=== PATIENT | female | born 1930 | race Caucasian/White ===

== ENCOUNTER 2016-11-13 11:57 | Observation (INO) | payer OTHER, BC ==
[2016-11-13] MEDS ORDERED: FAMOTIDINE 20 MG TAB PO ONE (12:00)
[2016-11-13] MEDS ORDERED: diphenhydrAMINE 25 MG CAP PO ONE ×2 (12:00→12:43)
[2016-11-13] MEDS ORDERED: ASPIRIN EC 325 MG TAB PO ONE ×2 (12:00→12:43)
[2016-11-13] MEDS ORDERED: DIAZEPAM 5 MG TAB PO ONE (12:00)
[2016-11-13] MEDS ORDERED: NS 1,000 ML IV ONE ×2 (12:00→20:20)
[2016-11-13] MEDS ORDERED: IOPAMIDOL (ISOVUE-370) 150 ML BTL IV ONE (12:25)
[2016-11-13] MEDS ORDERED: MIDAZOLAM 2 MG/2 ML VIAL ONE ×2 (12:25→13:43)
[2016-11-13] MEDS ORDERED: fentaNYL 100 MCG/2 ML INJ ONE ×2 (12:25→14:05)
[2016-11-13] MEDS ORDERED: LIDOCAINE 1% 30 ML SDV ONE (12:25)
--- NOTE | 2016-11-13 12:25 | CPEKG ---
Heart Rate: 78 RR Interval: 769 P-R Interval: 200 QRSD Interval: 94 QT Interval: 368 QTC Interval: 420 P Belen: 49 QRS Belen: 34 T Wave Belen: 11 EKG Severity - BORDERLINE ECG - EKG Impression: SINUS RHYTHM EKG Impression: LEFT ATRIAL ENLARGEMENT Electronically Signed By: Yoandy Astudillo 13-Nov-2016 14:34:15
[2016-11-13] MEDS ORDERED: FAMOTIDINE 20 MG TAB ONE (12:43)
[2016-11-13] MEDS ORDERED: DIAZEPAM 5 MG TAB ONE (12:44)
[2016-11-13 12:46] LABS: % IMMATURE GRANULYOCYTES 0.3 % (0.0-1.1); ABSOLUTE IMMATURE GRANULOCYTES 0.03 10^3/uL (0.00-0.10); ADD DIFF? NO; ADD MORPH? NO; ADD SCAN? NO; ATYPICAL LYMPHOCYTE FLAG 0 (0-99); FRAGMENT RBC FLAG 0 (0-99); HEMATOCRIT 41.5 % (38.0-47.0); HEMOGLOBIN 14.1 g/dL (12.6-16.3); LEFT SHIFT FLG 0 (0-99); LIPEMIA HEMOLYSIS FLAG 90 (0-99); MEAN CELL VOLUME 91.2 fL (81.5-99.8); MEAN PLATELET VOLUME 9.9 fL (8.7-11.7); PLATELET CLUMPS FLAG 40 (0-99); PLATELET COUNT 191 10^3/uL (150-400); RED BLOOD CELL COUNT 4.55 10^6/uL (4.18-5.33); RED CELL DISTRIBUTION WIDTH 14.4 % (11.5-15.2)
[2016-11-13 12:55] LABS: INR 1.03 (0.83-1.16); PROTIME(PATIENT) 13.4 SEC (12.0-15.0)
[2016-11-13 13:02] LABS: ANION GAP 10 mEq/L (8-16); CALCIUM 9.6 mg/dL (8.5-10.4); CARBON DIOXIDE 25 mEq/l (22-31); CHLORIDE 98 mEq/L (97-110); CHOLESTEROL 145 mg/dL (140-220); CHOLESTEROL/HDL RATIO 2.69 RATIO (1.00-4.44); CREATININE 0.5 mg/dL (0.6-1.0); GLOMERULAR FILTRATION RATE > 60; GLUCOSE 82 mg/dL (70-100); HIGH DENSITY LIPOPROTEIN 54 mg/dL (40-85); LDL/HDL RATIO 1.44 RATIO (1.00-3.22); LOW DENSITY LIPOPROTEIN 78 mg/dL (80-100); MAGNESIUM 1.7 mg/dL (1.6-2.3); NON-HIGH DENSITY LIPOPROTEIN 91 mg/dL (90-129); POTASSIUM 5.2 mEq/L (3.5-5.2); SODIUM 133 mEq/L (134-144); SPECIMEN HEMOLYSIS 146; TRIGLYCERIDE 66 mg/dL (35-135); VERY LOW DENSITY LIPOPROTEINS 13 mg/dL (8-25)
[2016-11-13] MEDS ORDERED: IOPAMIDOL (ISOVUE-300) 150 ML BTL IV ONE (13:38)
[2016-11-13] MEDS ORDERED: HEPARIN 10,000 UNIT/10 ML MDV ONE (13:42)
[2016-11-13] MEDS ORDERED: BIVALIRUDIN 250 MG/5 ML VIAL IV ONE (13:42)
[2016-11-13] MEDS ORDERED: NITROGLYCERIN 1,500 MCG/15 ML VIAL MISC ONE (13:55)
[2016-11-13] MEDS ORDERED: ONDANSETRON 4 MG/2 ML VIAL IVP PRN (14:12)
[2016-11-13] MEDS ORDERED: ONDANSETRON DISINTEGRATING 4 MG TAB PO PRN (14:12)
[2016-11-13] MEDS ORDERED: LORazepam 2 MG/ML INJ IVP PRN (14:12)
[2016-11-13] MEDS ORDERED: ACETAMINOPHEN 325 MG TAB PO PRN (14:12)
--- NOTE | 2016-11-13 14:18 | CPIP ---
[f rep st] INVASIVE CARDIAC PROCEDURE DIAGNOSIS: Unstable angina. INDICATIONS: The patient is having unstable angina and gotten to the point where she is having rest angina. She gets jaw discomfort as her angina. She has had no stress test at this time. She does not have heart failure. PROCEDURE: Left and right coronary arteriogram. COMPLICATIONS: None. CONDITION: At the end of the study, excellent. FINDINGS: 1. Angiography left main coronary artery is normal. 2. Left anterior descending artery has mild 10% disease in multiple places. 3. Circumflex coronary artery has 20% smooth ostial stenosis. OM1 also has a smooth 10% stenosis a t the ostium. 4. Right coronary artery has a proximal 90% stenosis. It is very hazy and a mid 95% stenosis. 5. The right coronary is dominant. There are faint left to right collaterals. RECOMMENDATION: For PCI consultation. /[id number]/MODL
[2016-11-13] MEDS ORDERED: fentaNYL 100 MCG/2 ML INJ IVP PRN (15:52)
[2016-11-13] MEDS ORDERED: LORazepam 1 MG TAB PO PRN (16:33)
[2016-11-13] MEDS ORDERED: NITROGLYCERIN 0.4 MG BTL SL PRN (16:33)
--- NOTE | 2016-11-13 17:08 | PDCTREPORT ---
Cardiothoracic Procedure Rpt Cardiothoracic Procedure Report: By my partner Dr. Partha Maher to perform angioplasty in the setting of significant InStent restenosis in a previously irradiated right coronary artery. I have reviewed the old diagnostic angiograms and therapeutic angiograms. Patient was anticoagulated with heparin. The right coronary artery is heavily calcified heavily stented with focal in stent restenosis distally and diffuse irregularities in the proximal segment on a bend. The ostium is heavily calcified. Guiding support was quite difficult. For details of all the guide catheters used please see the attached computer report. Ultimately a 7 Grenadian AL1 catheter was used to intubate the right coronary artery. The catheter was coaxial providing superb support. Using a 0.014 Kinetix wire attempts at crossing the RCA stenosis were made. The wire would cross proximally easily but would not go beyond the distal stenosis. Attempts at balloon support using a 3 mm and then a 1.25 mm balloon were made but due to the proximal calcification and rigidity the balloon would not pass easily beyond the proximal segment. Ultimately with a grade 2 course the will balloon did move more distally. It would not move further than the right coronary artery bend. After multiple attempts the right coronary lesion could not be crossed nor could we advanced a balloon down to the lesion. Patient was having significant groin pain during the procedure. It was elected to stop at this time rather than close the vessel with a proximal or distal dissection. Patient will be offered coronary artery bypass grafting single vessel versus an 8 Grenadian system and a 2nd attempt at opening this occlusion. Final diagnosis Unsuccessful PCI of the right coronary artery in the setting of recurrent InStent restenosis in a severely calcific /irradiated/heavily stented vessel. Questions were answered with the patient and her daughter. Patient Problems: Problems Problem Status Onset Chest pain Acute Chronic Disease [facility]/Transitonal Care Acute
[2016-11-13] MEDS ORDERED: ATROPINE SULFATE 1 MG/10 ML SYR ONE (18:40)
[2016-11-13] MEDS ORDERED: TEMAZEPAM 15 MG CAP PO PRN (20:20)
[2016-11-13] MEDS ORDERED: ATORVASTATIN CALCIUM 40 MG TAB PO SCH (21:00)
[2016-11-13] MEDS: METOPROLOL TARTRATE 50 MG TAB PO SCH (21:21)
[2016-11-13 22:58] VITALS: RESP 16
[2016-11-14 05:18] LABS: % IMMATURE GRANULYOCYTES 0.3 % (0.0-1.1); ABSOLUTE IMMATURE GRANULOCYTES 0.02 10^3/uL (0.00-0.10); ADD DIFF? NO; ADD MORPH? NO; ADD SCAN? NO; ATYPICAL LYMPHOCYTE FLAG 0 (0-99); FRAGMENT RBC FLAG 0 (0-99); HEMATOCRIT 34.5 % (38.0-47.0); HEMOGLOBIN 11.8 g/dL (12.6-16.3); LEFT SHIFT FLG 0 (0-99); LIPEMIA HEMOLYSIS FLAG 90 (0-99); MEAN CELL HEMOGLOBIN 31.5 pg (27.9-34.1); MEAN CELL HEMOGLOBIN CONCENTR. 34.2 g/dL (32.4-36.7); MEAN PLATELET VOLUME 10.2 fL (8.7-11.7); PLATELET CLUMPS FLAG 0 (0-99); PLATELET COUNT 166 10^3/uL (150-400); RED BLOOD CELL COUNT 3.75 10^6/uL (4.18-5.33); RED CELL DISTRIBUTION WIDTH 14.5 % (11.5-15.2)
[2016-11-14 05:30] LABS: CALCIUM 8.6 mg/dL (8.5-10.4); CARBON DIOXIDE 27 mEq/l (22-31); CHLORIDE 97 mEq/L (97-110); CREATININE 0.5 mg/dL (0.6-1.0); GLOMERULAR FILTRATION RATE > 60; GLUCOSE 85 mg/dL (70-100); SODIUM 129 mEq/L (134-144)
[2016-11-14] MEDS ORDERED: LEVOTHYROXINE 100 MCG TAB PO SCH (06:00)
[2016-11-14 06:09] LABS: ANION GAP 5 mEq/L (8-16); POTASSIUM 3.9 mEq/L (3.5-5.2)
[2016-11-14] MEDS: METOPROLOL TARTRATE 50 MG TAB PO SCH (08:39)
[2016-11-14] MEDS: CLOPIDOGREL BISULFATE 75 MG TAB PO SCH ×2 (08:40→08:43)
[2016-11-14] MEDS ORDERED: LOSARTAN POTASSIUM 50 MG TAB PO SCH (09:00)
[2016-11-14] MEDS ORDERED: NON-FORMULARY NEW DRUG (Lansoprazole [Prevacid] 15 MG) PO SCH (09:00)
[2016-11-14] MEDS ORDERED: Herbals/Supplements -Info Only PO SCH (09:00)
[2016-11-14] MEDS ORDERED: PRESERVISION AREDS2 FORMULA EYE VIT 1 EACH PO SCH (09:00)
[2016-11-14] MEDS ORDERED: LISINOPRIL 40 MG TAB PO SCH (09:00)
[2016-11-14] MEDS ORDERED: PANTOPRAZOLE SODIUM 40 MG TAB PO SCH (09:00)
[2016-11-14] MEDS ORDERED: INDAPAMIDE 2.5 MG TAB PO SCH (09:00)
[2016-11-14 12:02] VITALS: BP 95/60; PULSE 71; TEMP 98; O2SAT 93
--- NOTE | 2016-11-14 15:21 | GDS ---
[f rep st] DISCHARGE SUMMARY Jaw discomfort. DIAGNOSES: 1. Unstable angina. 2. Coronary artery disease. 3. Dyslipidemia. HISTORY AND HOSPITAL COURSE: The patient was admitted to the hospital because of increasing angina. She also has a history of hypertension and hyperlipidemia. She had a left and right coronary arteriogram done on 11/13, and she had mild 10% disease in the lef t anterior descending artery that was smooth. In her circumflex coronary artery there was a 20% smo oth ostial stenosis. OM-1 has a smooth 10% stenosis at the ostium. The right coronary artery is dominant, and has a 90% proximal stenosis. It was very hazy, and there was a mid 95% stenosis. The right common coronary is dominant. There very faint [id number] col laterals. She had no complications from the procedure. She then went on to have percutaneous intervention, and there was an unsuccessful PCI of the right c oronary artery in the setting of recurrent in-stent restenosis in a severely calcified, irradiated, heavily stented vessel. The patient tolerated that well. There was a dissection in the femoral art hannah by the end of the case. The patient had tolerated that very well. This morning she is up and a bout, walking well, having no trouble with the site of the catheterization. Catheterization was done with an ultrasound probe guiding the needle stick. Her films have been reviewed with the surgical service, and the recommendation is for her to meet [facility] on Thursday for possible surgery next week, with a single-vessel bypass. I have gone over the options with her and explained this to her, and she understands and is willing to proceed. I have also talked to her daughter and answered all her questions. DISCHARGE MEDICATIONS: The same as prior to admission. Synthroid 100 mcg, metoprolol tartrate 100 mg twice a day, lisinopril 40 mg daily, Atorvastatin 40 mg at bedtime, Plavix 75 mg p.o., Ativan p.r .n. She had been taking that in the past. She does use herbal supplements. She is on amlodipine 1 0 mg at bedtime. She uses nitroglycerin p.r.n. She is also taking aspirin 81 mg daily. All her questions have been answered. She is eager to get home. She does not want to stay in the ospital for observation and remain here until surgery would commence. 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 Obviously, her condition is guarded on the basis of having severe critical right coronary artery dis ease that is not amenable to percutaneous intervention, whatsoever, and which requires further surgi rené intervention in the future. However, in the meantime, she is ischemic in that region and she is going to be very careful with what she does, and use nitroglycerin ahead of time if she knows that she is doing as much as the last time she took nitroglycerin when she walked 2 blocks to [employer] and back. I have answered all the questions. We have reviewed prevention. /[id number]/MODL
== END 2016-11-14 15:09 | disposition home or self-care (01) ==
LOC: FCATH 11:57 → F2W 14:12
PROVIDERS: ADMIT Internal Medicine; ATTEND Internal Medicine
DX: I25.110 Atherosclerotic heart disease of native coronary artery with unstable angina pectoris (principal); E78.2 Mixed hyperlipidemia; I10 Essential (primary) hypertension; R68.84 Jaw pain; Z79.01 Long term (current) use of anticoagulants; Z85.3 Personal history of malignant neoplasm of breast; Z87.891 Personal history of nicotine dependence
CPT/HCPCS: 93005; 93454; C1725; C1769; C1887; J0461; J1200; J1644; J2250; J3010; Q9967; J0583

== ENCOUNTER 2016-11-16 19:14 | Inpatient (IN) | payer OTHER, BC ==
--- NOTE | 2016-11-16 19:30 | CPEKG ---
Heart Rate: 85 RR Interval: 706 P-R Interval: 188 QRSD Interval: 98 QT Interval: 376 QTC Interval: 447 P Bowman: 40 QRS Bowman: 24 T Wave Bowman: -21 EKG Severity - BORDERLINE ECG - EKG Impression: SINUS RHYTHM EKG Impression: PROBABLE LEFT ATRIAL ABNORMALITY EKG Impression: BORDERLINE T ABNORMALITIES, INFERIOR LEADS Electronically Signed By: Hernán Shrestha 16-Nov-2016 21:43:20
--- NOTE | 2016-11-16 19:39 | EDPHY ---
H & P Stated Complaint: nauseated and lightheaded; recent stent placement unsuccessful Time Seen by Provider: 11/16/16 19:38 - Personal History Current Tetanus/Diphtheria Vaccine: Yes - Medical/Surgical History Hx Asthma: No Hx Chronic Respiratory Disease: No Hx Diabetes: No Hx Cardiac Disease: Yes Hx Renal Disease: No Hx Cirrhosis: No Hx Alcoholism: No Hx HIV/AIDS: No Hx Splenectomy or Spleen Trauma: No Other PMH: PMH- cad, htn, hld, hypothyroid, breast CA, osteopenia, cataracts, macular degeneration, L. wrist fracture. PSH- 6 stents, right radical mastectomy - Social History Smoking Status: Former smoker Constitutional: Initial Vital Signs Temperature (C) 36.4 C 11/16/16 19:21 Heart Rate 94 11/16/16 19:21 Respiratory Rate 19 11/16/16 19:21 Blood Pressure 116/54 L 11/16/16 19:21 O2 Sat (%) 88 L 11/16/16 19:21 O2 Delivery Mode Room Air Allergies/Adverse Reactions: Sulfa (Sulfonamide Antibiotics) Allergy (Unknown, Verified 09/17/15 09:13) Unknown Home Medications: Medication Instructions Recorded Atorvastatin Calcium [Lipitor 40 40 mg PO HS 03/13/14 mg (*)] C/E/Zn/Cu/OM3/DHA/EPA/LUT/ZEAX 2 each PO DAILY #0 03/13/14 [Preservision Areds 2 Softgel] Clopidogrel Bisulfate [Plavix (*)] 75 mg PO DAILY 03/13/14 Herbals/Supplements -Info Only 1 tab PO DAILY 03/13/14 LORazepam [Ativan (*)] 0.5 mg PO HS PRN 03/13/14 Levothyroxine [Synthroid 100 mcg 100 mcg PO DAILY06 03/13/14 (*)] Lisinopril [Zestril 40 mg (*)] 40 mg PO DAILY 03/13/14 Metoprolol Tartrate [Lopressor 50 100 mg PO BID 03/13/14 mg (*)] amLODIPine BESYLATE [Norvasc 10 mg 10 mg PO HS 09/17/15 (*)] Indapamide [Indapamide 2.5 mg (*)] 2.5 mg PO DAILY 11/13/16 Lansoprazole [Prevacid] 15 mg PO DAILY 11/13/16 Losartan Potassium [Cozaar 50 mg 50 mg PO DAILY 11/13/16 (*)] Nitroglycerin [Nitrostat 0.4 mg 0.4 mg SL Q5M PRN 11/13/16 (*)] Medical Decision Making ED Course/Re-evaluation: CHIEF COMPLAINT: Near syncope. HISTORY OF PRESENT ILLNESS: The patient is an 86-year-old female with a history of CAD and 6 cardiac stents who presents after a near syncopal episode. She reports that this morning when she would exert herself she would get severe jaw pains. In the evening she experienced an episode of vomiting, chills, and had to lie on the floor to not pass out. She admits associated headache which was the symptom she had prior to a previous stenting. On she was going to have her 7th stent placed but the procedure was unable to be finished due to arterial tearing and a bypass surgery is planned. She denies recent sickness, fever, diarrhea, or other complaints. REVIEW OF SYSTEMS: A 10 point review of systems was performed and is negative with the exception of the elements mentioned in the history of present illness. PHYSICAL EXAM: HR, BP, O2 Sat, RR. Temp noted General Appearance: Alert, well hydrated, appropriate, and non-toxic appearing. Head: Atraumatic without scalp tenderness or obvious injury Eyes: Pupils equal, round, reactive to light and accommodation, EOMI, no trauma , no injection. Ears: Clear bilaterally, no perforation, normal landmarks Nose: Atraumatic, no rhinorrhea, clear. Throat: There is no erythema or exudates, no lesions, normal tonsils, mucus membranes moist. Neck: Supple, 2+ carotid upstroke, nontender, no lymphadenopathy. Respiratory: No retractions, no distress, no wheezes, and no accessory muscle use. Inspiratory rales. Cardiovascular: Regular rate and rhythm, no murmurs, rubs, or gallops. Bilateral carotid, radial, dorsalis pedis, and posterior tibial pulses intact. Good capillary refill all extremities. Gastrointestinal: Abdomen is soft, nontender, non-distended, no masses, no rebound, no guarding, no peritoneal signs. Musculoskeletal: Normal active ROM of all extremities, atraumatic. Bilateral lower extremity venous stasis changes. Neurological: Alert, appropriate, and interactive. The patient has normal DTRs and non-focal cranial nerves, motor, sensory, and cerebellar exam. Skin: No rashes, good turgor, no nodules on palpation. Past medical history: CAD, hypertension, hyperlipidemia, hypothyroidism, breast CA, osteopenia, cataracts, macular degeneration. Past surgical history: Mastectomy. Social history: Here with son. DIAGNOSTICS/PROCEDURES/CRITICAL CARE TIME: The 12 lead EKG was interpreted by myself. See hard copy and/or "tracemaster" electronic copy for interpretation. Sinus rhythm. Probable left atrial abnormality. T-wave changes in V4. DIFFERENTIAL DIAGNOSIS: The differential diagnosis for the patient's near-syncope included but was not limited to vasovagal syncope, arrhythmia, dehydration, cardiogenic causes, neurogenic causes, and blood loss. MEDICAL DECISION MAKIN-year-old female with an extensive cardiac history presents after a near syncopal episode earlier today. She also describes having exertional jaw pain this morning while walking. On exam I hear inspiratory rales. She was supposed to be stented 3 days ago but this was not completed due to arterial tearing so she is scheduled for bypass. An IV was established and labs ordered. Chest x-ray , EKG obtained. Troponin elevated at .116. I am unsure if this is from an acute event today or her failed stenting 3 days ago. BNP elevated at 556. 2004: Consulted with Dr. Scherer, hospitalist. He accepts admission. 2014: Consulted with Dr. Astudillo, cardiology. He recommends 1mg/kg Lovenox and nitro paste. - Data Points Laboratory Results: Laboratory Results 11/16/16 19:25 11/16/16 19:25 11/16/16 11/16/16 11/16/16 19:25 19:25 19:25 WBC 8.94 10^3/uL 10^3/uL (3.80-9.50) RBC 3.78 10^6/uL L 10^6/uL (4.18-5.33) Hgb 11.8 g/dL L g/dL (12.6-16.3) Hct 34.8 % L % (38.0-47.0) MCV 92.1 fL fL (81.5-99.8) MCH 31.2 pg pg (27.9-34.1) MCHC 33.9 g/dL g/dL (32.4-36.7) RDW 14.3 % % (11.5-15.2) Plt Count 205 10^3/uL 10^3/uL (150-400) MPV 10.1 fL fL (8.7-11.7) Neut % (Auto) 65.8 % % (39.3-74.2) Lymph % (Auto) 24.8 % % (15.0-45.0) Dare % (Auto) 6.2 % % (4.5-13.0) Eos % (Auto) 2.5 % % (0.6-7.6) Baso % (Auto) 0.4 % % (0.3-1.7) Nucleat RBC Rel Count 0.0 % % (0.0-0.2) Absolute Neuts (auto) 5.88 10^3/uL 10^3/uL (1.70-6.50) Absolute Lymphs (auto) 2.22 10^3/uL 10^3/uL (1.00-3.00) Absolute Monos (auto) 0.55 10^3/uL 10^3/uL (0.30-0.80) Absolute Eos (auto) 0.22 10^3/uL 10^3/uL (0.03-0.40) Absolute Basos (auto) 0.04 10^3/uL 10^3/uL (0.02-0.10) Absolute Nucleated RBC 0.00 10^3/uL 10^3/uL (0-0.01) Immature Gran % 0.3 % % (0.0-1.1) Immature Gran # 0.03 10^3/uL 10^3/uL (0.00-0.10) PT 13.4 SEC SEC (12.0-15.0) INR 1.03 (0.83-1.16) APTT 24.4 SEC SEC (23.0-38.0) Sodium 131 mEq/L L mEq/L (134-144) Potassium 3.7 mEq/L mEq/L (3.5-5.2) Chloride 93 mEq/L L mEq/L (97-110) Carbon Dioxide 26 mEq/l mEq/l (22-31) Anion Gap 12 mEq/L mEq/L (8-16) BUN 15 mg/dL mg/dL (7-23) Creatinine 0.7 mg/dL mg/dL (0.6-1.0) Estimated GFR > 60 Glucose 110 mg/dL H mg/dL (70-100) Calcium 9.5 mg/dL mg/dL (8.5-10.4) Troponin I 0.116 ng/mL H ng/mL (0-0.034) NT-Pro-B Natriuret Pep 556 pg/mL H pg/mL (0-450) Departure - Departure Disposition: [facility] Inpatient Acute Clinical Impression: Acute coronary syndrome Coronary artery disease Qualifiers: Coronary Disease-Associated Artery/Lesion type: unspecified vessel or lesion type [place] vs. transplanted heart: [place] heart Associated angina: with unspecified angina Qualified Code(s): I25.119 - Atherosclerotic heart disease of [place] coronary artery with unspecified angina pectoris Condition: Fair Referrals: Patient,NotPresent [Unknown] - As per Instructions Report Scribed for: Hernán Shrestha Report Scribed by: Fili Jane Date of Report: 11/16/16 Time of Report: 20:01
[2016-11-16 19:45] LABS: % IMMATURE GRANULYOCYTES 0.3 % (0.0-1.1); ABSOLUTE IMMATURE GRANULOCYTES 0.03 10^3/uL (0.00-0.10); ADD DIFF? NO; ADD MORPH? NO; ADD SCAN? NO; ATYPICAL LYMPHOCYTE FLAG 0 (0-99); FRAGMENT RBC FLAG 0 (0-99); HEMATOCRIT 34.8 % (38.0-47.0); HEMOGLOBIN 11.8 g/dL (12.6-16.3); LEFT SHIFT FLG 0 (0-99); LIPEMIA HEMOLYSIS FLAG 90 (0-99); MEAN CELL HEMOGLOBIN 31.2 pg (27.9-34.1); MEAN CELL HEMOGLOBIN CONCENTR. 33.9 g/dL (32.4-36.7); MEAN CELL VOLUME 92.1 fL (81.5-99.8); MEAN PLATELET VOLUME 10.1 fL (8.7-11.7); PLATELET CLUMPS FLAG 10 (0-99); PLATELET COUNT 205 10^3/uL (150-400); RED BLOOD CELL COUNT 3.78 10^6/uL (4.18-5.33); RED CELL DISTRIBUTION WIDTH 14.3 % (11.5-15.2)
[2016-11-16 19:50] LABS: ANION GAP 12 mEq/L (8-16); CALCIUM 9.5 mg/dL (8.5-10.4); CARBON DIOXIDE 26 mEq/l (22-31); CHLORIDE 93 mEq/L (97-110); CREATININE 0.7 mg/dL (0.6-1.0); GLOMERULAR FILTRATION RATE > 60; GLUCOSE 110 mg/dL (70-100); POTASSIUM 3.7 mEq/L (3.5-5.2); SODIUM 131 mEq/L (134-144)
[2016-11-16 19:56] LABS: APTT 24.4 SEC (23.0-38.0); INR 1.03 (0.83-1.16); PROTIME(PATIENT) 13.4 SEC (12.0-15.0)
[2016-11-16 20:03] LABS: TROPONIN I 0.116 ng/mL (0-0.034)
[2016-11-16] MEDS ORDERED: ENOXAPARIN 60 MG/0.6 ML SYR SC ONE (20:17)
[2016-11-16] MEDS ORDERED: NITROGLYCERIN 2% 1 GM PACKET TP ONE (20:17)
[2016-11-16] MEDS ORDERED: ONDANSETRON 4 MG/2 ML VIAL IVP PRN (20:41)
[2016-11-16] MEDS ORDERED: PANTOPRAZOLE SODIUM 40 MG TAB PO PRN (21:28)
[2016-11-16 21:33] LABS: COLOR YELLOW; LEUKOCYTE ESTERASE,URINE 3+ (NEGATIVE); NITRITE,URINE NEGATIVE (NEGATIVE)
--- NOTE | 2016-11-16 21:36 | GHP ---
[f rep st] HISTORY AND PHYSICAL DATE OF ADMISSION: 11/16/2016 CHIEF COMPLAINT: Jaw pain, nausea. HISTORY OF PRESENT ILLNESS: This is an 86-year-old female with a history of coronary artery disease . She has had 6 stents in the past and the last several has been in the right coronary artery. She had anginal symptoms recently and was admitted electively just a few days ago and stent placement w as attempted, but it was unsuccessful due to significant calcification. She had an appointment with Dr. Emmanuel tomorrow to consider one-vessel bypass. However, this morning, she had an episode of vom iting and then, progressive jaw pain. It was worse with exertion. She also felt lightheaded and swe aty. She has been taking nitroglycerin a lot over the last several days and it has helped some. Pravin solano has had chills, but no fevers. No cough. She has mild peripheral edema. She does feel short of breath with exertion. REVIEW OF SYSTEMS: A 10-point review of systems was obtained and was negative. PAST MEDICAL HISTORY: 1. Coronary artery disease, as above. 2. 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 3. Wet macular degeneration. 4. Osteopenia. 5. Hypothyroidism. MEDICATIONS: Reviewed. SOCIAL HISTORY: No smoking. Is quite active and goes to many exercise classes a day. She recently came back from and was able to tour without any problems. FAMILY HISTORY: Both parents are . PHYSICAL EXAMINATION: VITAL SIGNS: Afebrile, blood pressure 141/75, heart rate is 86, oxygen satur ation is 88% on room air. GENERAL: The patient is in no apparent distress. HEENT: Nonicteric scl erae. Extraocular movements intact. Moist mucous membranes. No exudate. NECK: Supple. No thyro megaly. LUNGS: Good effort. Clear to auscultation bilaterally. CARDIOVASCULAR: Regular rate and rhythm. No murmurs, rubs, or gallops. ABDOMEN: Positive bowel sounds. Soft, nontender, nondisten ded. No hepatosplenomegaly. EXTREMITIES: No clubbing, cyanosis, trace edema. SKIN: Without rash, dry, intact. NEUROLOGIC: Alert and oriented x3. Moving all 4 extremities equally. PSYCH: Normal mood and affect. LABORATORY DATA: White count 8, hemoglobin 11, platelets are 205. Sodium 131, potassium 3.7. Trop onin is slightly elevated at 0.116. BNP 556. EKG personally reviewed and interpreted shows normal sinus rhythm. T-wave flattening inferiorly. ASSESSMENT: This is an 86-year-old female with a history of significant stenosis of right coronary artery that was unable to be stented, presenting with unstable angina. PLAN: 1. Unstable angina. The patient will be started on Lovenox and a nitroglycerin patch. Cardiology has been consulted. We will probably need to let Cardiovascular Surgery know the patient is in the hospital so they can see her and possibly do bypass surgery here in the hospital. 2. Mild hyponatremia. 3. Hypertension. Continue medications. ADMISSION: Patient will be admitted under full admission status. Case discussed with ER physician and old records reviewed and summarized in HPI. /[id number]/MODL
[2016-11-16 21:45] LABS: BACTERIA TRACE /hpf (NONE SEEN); MUCUS TRACE /lpf (NONE-1+); WBC,URINE 15-25 /hpf (0-3)
[2016-11-16] MEDS: ACETAMINOPHEN 325 MG TAB PO PRN (23:11)
[2016-11-16] MEDS: NITROGLYCERIN 2% 1 GM PACKET TP SCH (23:11)
[2016-11-16] MEDS: LORazepam 0.5 MG TAB PO PRN (23:11)
[2016-11-17 04:28] LABS: % IMMATURE GRANULYOCYTES 0.1 % (0.0-1.1); ABSOLUTE IMMATURE GRANULOCYTES 0.01 10^3/uL (0.00-0.10); ADD DIFF? NO; ADD MORPH? NO; ADD SCAN? NO; ATYPICAL LYMPHOCYTE FLAG 0 (0-99); FRAGMENT RBC FLAG 0 (0-99); HEMATOCRIT 32.1 % (38.0-47.0); HEMOGLOBIN 11.1 g/dL (12.6-16.3); LEFT SHIFT FLG 0 (0-99); LIPEMIA HEMOLYSIS FLAG 90 (0-99); MEAN CELL HEMOGLOBIN 31.2 pg (27.9-34.1); MEAN CELL HEMOGLOBIN CONCENTR. 34.6 g/dL (32.4-36.7); MEAN CELL VOLUME 90.2 fL (81.5-99.8); PLATELET CLUMPS FLAG 10 (0-99); PLATELET COUNT 190 10^3/uL (150-400); RED BLOOD CELL COUNT 3.56 10^6/uL (4.18-5.33); RED CELL DISTRIBUTION WIDTH 14.1 % (11.5-15.2)
[2016-11-17 05:00] LABS: ANION GAP 6 mEq/L (8-16); CARBON DIOXIDE 26 mEq/l (22-31); CHLORIDE 95 mEq/L (97-110); CREATININE 0.6 mg/dL (0.6-1.0); GLUCOSE 92 mg/dL (70-100); POTASSIUM 3.6 mEq/L (3.5-5.2); SODIUM 127 mEq/L (134-144)
[2016-11-17 05:01] LABS: ALANINE AMINOTRANSFERASE 34 IU/L (9-52); ALBUMIN 3.6 g/dL (3.5-5.0); ALKALINE PHOSPHATASE 76 IU/L (38-126); ASPARTATE AMINOTRANSFERASE 27 IU/L (14-46); BILIRUBIN,TOTAL 0.5 mg/dL (0.1-1.4); CALCIUM 9.1 mg/dL (8.5-10.4); GLOMERULAR FILTRATION RATE > 60; TOTAL PROTEIN 6.2 g/dL (6.3-8.2)
[2016-11-17 05:11] LABS: TROPONIN I 0.119 ng/mL (0-0.034)
[2016-11-17] MEDS: LEVOTHYROXINE 100 MCG TAB PO SCH (06:06)
[2016-11-17] MEDS: NITROGLYCERIN 2% 1 GM PACKET TP SCH ×4 (06:06→23:03)
[2016-11-17] MEDS: LOSARTAN POTASSIUM 50 MG TAB PO SCH (08:13)
[2016-11-17] MEDS: METOPROLOL TARTRATE 100 MG TAB PO SCH ×2 (08:13→20:34)
[2016-11-17] MEDS: ACETAMINOPHEN 325 MG TAB PO PRN ×3 (08:14→23:09)
[2016-11-17] MEDS: LISINOPRIL 40 MG TAB PO SCH (08:14)
[2016-11-17] MEDS ORDERED: INDAPAMIDE 2.5 MG TAB PO SCH (09:00)
[2016-11-17] MEDS ORDERED: HEPARIN/DEXTROSE 500 ML IV SCH (09:00)
[2016-11-17 11:06] LABS: HEMOGLOBIN A1C 5.9 % (4.0-6.0)
--- NOTE | 2016-11-17 11:13 | ECHO ---
[id number] + + [address] : : [place] [address] : : [phone] + + Adult Echocardiographic Report + ----+ :Name: ANITRA MCCLAIN JStudy Date: 11/17/2016 09:18 AM BP: 90/68 mm Hg : : Hospital Admission Number: [id number] : :: 1930 Gender: Female Height: 63 i n : :Age: 86 yrs Race: WH,White Weight: 163 lb : :Reason For Study: Eval LV Fx and Valves : : BSA: 1.8 met ers2: :History: Pre Op CABG : + ----+ MMode/2D Measurements \T\ Calculations IVSd: 0.86 cm LVIDd: 4.0 cm FS: 37.1 % Ao root diam: 2.5 cm LVPWd: 0.95 cm LVIDs: 2.5 cm EDV(Teich): 69.3 ml ACS: 0.80 cm ESV(Teich): 22.5 ml LA dimension: 3.8 cm EF(Teich): 67.6 % LVOT diam: 1.9 cm LVOT area: 2.8 cm2 Normal Measurement Values: + + :LVIDd (3.5-5.7cm) IVSd (0.6-1.1cm) LVPWd (0.6-1.1cm) Aortic Root (2.0-3.7cm)Left Atrium (1.5-4.0cm): :LV Vol(d) (76-115ml) LV Vol(s) (29-48ml) Ejec Fraction (50-65%)PV Toñito (0.6- 1.2m/s) TV Toñito (0.4-1.0m/s) : :MV E Toñito (0.8-1.0m/s)MV A Toñito (0.3-1.0m/s)LVOT Toñito (0.7-1.2m/s) Asc Ao Toñito ( 0.9-1.8m/s) : + + Doppler Measurements \T\ Calculations MV E max toñito: MV V2 mean: Ao V2 max: LV V1 max: 65.2 cm/sec 62.9 cm/sec 243.7 cm/sec 77.5 cm/sec MV A max toñito: MV mean PG: Ao max P.8 mmHgLV V1 max P.8 cm/sec 1.8 mmHg Ao mean P.4 mmHg MV E/A: 0.73 MV V2 VTI: 18.5 mmHg LV V1 mean P.7 cm Ao V2 mean: 1.2 mmHg 206.7 cm/sec LV V1 mean: MVA(VTI): 2.4 cm2 Ao V2 VTI: 60.4 cm 48.2 cm/sec LV V1 VTI: 18.2 cm KRISTI(I,D): 0.85 cm2 KRISTI(V,D): 0.90 cm2 SV(LVOT): 51.5 ml PA V2 max: PI end-d toñito: TR max toñito: 92.3 cm/sec 172.4 cm/sec 264.7 cm/sec PA max PG: TR max P.4 mmHg 28.0 mmHg RAP systole: 5.0 mmHg RVSP(TR): 33.0 mmHg Left Ventricle The left ventricle is normal in size. There is mild concentric left ventricular hypertrophy. The left ventricular ejection fraction is normal. There is Doppler evidence for diastolic dysfunction. The left ventricle is hyperdynamic. Ejection Fraction = 70%. The left ventricular ejection fraction is calculated at 67.6 %. There is mild basilar to mid inferolateral hypokinesis. Right Ventricle The right ventricle is normal in size and function. Atria The left atrial size is normal. Right atrial size is normal. Mitral Valve There is mild mitral annular calcification. The mitral valve leaflets appear thickened, but open well. There is no mitral valve stenosis. There is trace to mild mitral regurgitation. Tricuspid Valve There is trace to mild tricuspid regurgitation. Right ventricular systolic pressure is normal. Aortic Valve There is mild to moderate aortic valve calcification. The aortic valve is trileaflet. The Ao V2 max is 2.4 m/sec with an Ao mean PG of 18 mmHg. There is no aortic insufficiency. Pulmonic Valve The pulmonic valve is not well visualized. Mild pulmonic valvular regurgitation. Great Vessels The aortic root is normal size. Pericardium/Pleural There is no pericardial effusion. Conclusion A complete two-dimensional transthoracic echocardiogram was performed (2D, M-mode, Doppler and color flow Doppler). (1) Left ventricular systolic ejection fraction was normal (>70%) - there was mild inferolateral hypokinesis noted (2) Mild left ventricular hypertrophy (3) Diastolic dysfunction was present (4) Grossly normal right ventricular size and function (5) Grossly normal atrial dimensions (6) Mild mitral annular calcification with thickened valves (no stenosis). There was trace/mild mitral regurgitation (7) Trileaflet aortic valve with moderate sclerosis with mild to moderate stenosis. - mean gradient was 18 mm Hg - KRISTI was estimated to be 0.9 cm\S\2 (8) Mild tricuspid regurgitation - RVSP was normal (9) Poor visualization of the pulmonic valve with mild insufficiency (10) In comparison to echocardiogram from 03-14-14, there has been some progression to the aortic valve pathology. Final Reading Physician: Asael Chavez signed on 11/17/2016 11:11 AM Ordering Physician: Elana Campa Performed By: Tom Ibrahim, ISMACS
--- NOTE | 2016-11-17 11:57 | GCON ---
[f rep st] CONSULTATION DATE OF CONSULTATION: 11/17/2016 REFERRING PHYSICIAN: Mia Astudillo MD ADMISSION IMPRESSION: 1. Unstable angina pectoris with severe disease of the right coronary artery status post 4 previous stents. 2. History of breast cancer with cobalt radiation to the chest. 3. Macular degeneration. 4. Hypothyroidism. RECOMMENDATIONS: I discussed at length the patient's options including continued medical therapy wi th likely ultimate myocardial infarction which I believe would be rather small and would control her symptoms at that time. The other option is consider surgical intervention, a single bypass graft t o the right is potentially doable. I do have some reservations about the quality of her distal vess el and the first two-thirds of the vessel entirely covered in stents leaving minimal options. The b ranch vessels from the main right coronary artery are too small for grafting and, therefore, we will have to concentrate on the main vessel in the AV groove. I did advise them that there is some chance that we would be unable to bypass that vessel because of its quality, but we would continue to proceed if they wished and agreed. Complications, length of stay and potential rehab placement were all discussed at length. CHIEF COMPLAINT: A very pleasant 86-year-old female who has had multiple interventions on the right coronary artery with a recent unsuccessful PCI with readmission for unstable angina. She had minim al enzyme elevation on readmission. REVIEW OF SYSTEMS: Unremarkable. MEDICAL HISTORY: As stated. MEDICATIONS: She was on Plavix which was discontinued on admission. SOCIAL HISTORY: She never smoked. She does like to drink a glass of wine per night. She exercises on a daily basis. FAMILY HISTORY: Noncontributory. PHYSICAL EXAMINATION: GENERAL: An elderly female who is quite alert, oriented, and very attentive. She does express in extreme will to survive and has multiple family members who are supportive air and are very involved in her daily life including international travel. VITAL SIGNS: Blood pressu re is 140/70, pulse 84, respirations 88 on room air. HEENT: PERRLA. EOMI. NECK: Without bruit, adenopathy or thyromegaly. HEART: Rate is regular without murmur, S3 or S4. LUNGS: Clear. ABDOM EN: Soft, nontender. Bowel sounds are active. RECTAL AND GENITAL: Deferred. EXTREMITIES: Pedal pulses are 1+. She has no edema. No varicosities. DIAGNOSTICS: Catheterization films were reviewed. /[id number]/MODL
[2016-11-17] MEDS: SENNOSIDES/DOCUSATE SODIUM TAB PO SCH ×2 (14:35→20:32)
[2016-11-17] MEDS: MUPIROCIN 2% 22 GM OINT NS SCH ×2 (14:48→20:37)
--- NOTE | 2016-11-17 15:36 | HOSPPROG ---
Hospitalist Progress Note Assessment/Plan: * CAD - RCA stenosis with multiple failed stent attempts -ongoing angina with borderline troponin elevation -to CABG with Dr. Emmanuel in am -holding plavix * HTN - multidrug requirement * Breast ca s/p cobolt tx * RUE chronic lymphedema s/p mastectomy * Wet macular degeneration * Hyponatremia -stop indapamide Going to CT surgery tomorrow. Hospitalist medicine to sign off. Please reconsult if our services are needed. Thanks!! Subjective: No more jaw pain. Headache from the nitro Objective: Vital Signs Temp Pulse Resp BP Pulse Ox 35.9 C L 70 18 99/65 L 91 L 11/17/16 11:51 11/17/16 11:51 11/17/16 11:51 11/17/16 11:51 11/17/16 11:51 Laboratory Results 11/17/16 03:38 11/17/16 03:38 11/16/16 11/17/16 11/18/16 05:59 05:59 05:59 Intake Total 300 400 Output Total 600 Balance -300 400 PT 13.4 SEC (12.0-15.0) 11/16/16 19:25 INR 1.03 (0.83-1.16) 11/16/16 19:25 EKG viewed, my personal interpretation is - inferior TW changes c/w RCA lesion carotid US - negative - Physical Exam Constitutional: no apparent distress, appears nourished, not in pain Cardiovascular: regular rate and rhythym, no murmur, rub, or gallop Respiratory: no respiratory distress, no rales or rhonchi, clear to auscultation Gastrointestinal: normoactive bowel sounds, soft, non-tender abdomen, no palpable masses Skin: no rashes or abrasions, no fluctuance, no induration Neurologic: AAOx3, sensation intact bilaterally Psychiatric: interacting appropriately, not anxious, not encephalopathic, thought process linear ICD10 Worksheet Patient Problems: Problems Problem Status Onset Acute coronary syndrome Acute Coronary artery disease Acute Chest pain Acute Chronic Disease [facility]/Transitonal Care Acute
[2016-11-17] MEDS: ATORVASTATIN CALCIUM 40 MG TAB PO SCH (20:34)
[2016-11-17] MEDS ORDERED: CHLORHEXIDINE GLUC HIBICLENS 118 ML BTL TP SCH (21:00)
[2016-11-17] MEDS: LORazepam 0.5 MG TAB PO PRN (23:18)
[2016-11-18 04:33] LABS: HEMATOCRIT 30.8 % (38.0-47.0); MEAN CELL HEMOGLOBIN 32.1 pg (27.9-34.1); MEAN CELL HEMOGLOBIN CONCENTR. 35.7 g/dL (32.4-36.7); MEAN CELL VOLUME 89.8 fL (81.5-99.8); RED BLOOD CELL COUNT 3.43 10^6/uL (4.18-5.33)
[2016-11-18 05:32] LABS: ANION GAP 10 mEq/L (8-16); CALCIUM 9.1 mg/dL (8.5-10.4); CARBON DIOXIDE 24 mEq/l (22-31); CHLORIDE 90 mEq/L (97-110); CREATININE 0.6 mg/dL (0.6-1.0); GLOMERULAR FILTRATION RATE > 60; GLUCOSE 97 mg/dL (70-100); POTASSIUM 3.5 mEq/L (3.5-5.2); SODIUM 124 mEq/L (134-144)
[2016-11-18] MEDS ORDERED: PROTAMINE SULFATE 50 MG/5 ML VIAL IVP ONE (06:36)
[2016-11-18] MEDS ORDERED: ALBUMIN 5% 250 ML BOTTLE IV ONE ×2 (06:36→18:16)
[2016-11-18] MEDS ORDERED: NA BICARBONATE 50 MEQ/50 ML VIAL ONE (06:37)
[2016-11-18] MEDS ORDERED: ADENOSINE 6 MG/2 ML VIAL ONE (06:37)
[2016-11-18] MEDS ORDERED: CALCIUM CHLORIDE 1 GM/10 ML INJ ONE (06:37)
[2016-11-18] MEDS ORDERED: MILRINONE/DEXTROSE/100 ML BAG IV ONE (06:37)
[2016-11-18] MEDS ORDERED: POTASSIUM Cl (KCl) 20 MEQ/50 ML BAG IV ONE (06:37)
[2016-11-18] MEDS ORDERED: LIDOCAINE 2% 100 MG/5 ML SYR ONE (06:37)
[2016-11-18] MEDS ORDERED: niCARdipine/NACL/200 ML BAG IV ONE (06:37)
[2016-11-18] MEDS ORDERED: AMINOCAPROIC ACID 5 GM/20 ML VIAL ONE (06:37)
[2016-11-18] MEDS ORDERED: CITRATE DEXTROSE SOLN 500 ML BAG ONE (06:37)
[2016-11-18] MEDS ORDERED: DOPamine/DEXTROSE/250 ML BAG IV ONE (06:37)
[2016-11-18] MEDS ORDERED: AMIODARONE HCL 150 MG/3 ML VIAL ONE (06:37)
[2016-11-18] MEDS ORDERED: MAGNESIUM SULFATE 1 GM/2 ML VIAL ONE (06:38)
[2016-11-18] MEDS ORDERED: HEPARIN 10,000 UNIT/10 ML MDV ONE (06:38)
[2016-11-18] MEDS ORDERED: methylPREDNISolone SOD SUCC 1 GM/8 ML VIAL ONE (06:38)
[2016-11-18] MEDS ORDERED: ceFAZolin 1 GM VIAL ONE (06:38)
[2016-11-18] MEDS: NITROGLYCERIN 2% 1 GM PACKET TP SCH ×2 (06:44→16:53)
[2016-11-18] MEDS: ACETAMINOPHEN 325 MG TAB PO PRN (06:44)
[2016-11-18] MEDS: LEVOTHYROXINE 100 MCG TAB PO SCH (06:45)
[2016-11-18] MEDS: MUPIROCIN 2% 22 GM OINT NS SCH ×2 (06:51→20:15)
[2016-11-18] MEDS ORDERED: POTASSIUM Cl (KCl) 20 MEQ in LR 1,000 ML IV SCH (08:00)
[2016-11-18] MEDS: METOPROLOL TARTRATE 100 MG TAB PO SCH (08:41)
[2016-11-18] MEDS: SENNOSIDES/DOCUSATE SODIUM TAB PO SCH (08:42)
[2016-11-18] MEDS: LISINOPRIL 40 MG TAB PO SCH (08:43)
[2016-11-18] MEDS: LOSARTAN POTASSIUM 50 MG TAB PO SCH (08:43)
[2016-11-18] MEDS ORDERED: VERAPAMIL 5 MG, NITROGLYCERIN 2.5 MG, HEPARIN 500 UNIT, SODIUM BICARBONATE 0.2 MEQ in L... MISC ONE (10:00)
[2016-11-18] MEDS ORDERED: CITRATE DEXTROSE SOLN 500 ML BAG MISC ONE (10:00)
[2016-11-18] MEDS ORDERED: NOREPINEPHRINE BITARTRATE 16 MG in NS 250 ML IV ONE (10:00)
[2016-11-18] MEDS ORDERED: MANNITOL 25% 12.5 GM/50 ML VIAL IV ONE (10:00)
[2016-11-18] MEDS ORDERED: niCARdipine/NACL 200 ML IV ONE (10:00)
[2016-11-18] MEDS ORDERED: SODIUM BICARBONATE 20 MEQ, LIDOCAINE 1% 10 ML in NORMOSOL-R 1,000 ML MISC ONE (10:00)
[2016-11-18] MEDS ORDERED: ceFAZolin 2 GM/DEXTROSE 100 ML IV ONE (10:00)
[2016-11-18] MEDS ORDERED: INSULIN REGULAR HUMAN 100 UNIT in NS 100 ML IV ONE (10:00)
[2016-11-18] MEDS ORDERED: NS 1,000 ML IV ONE (10:00)
[2016-11-18] MEDS ORDERED: AMINOCAPROIC ACID 5 GM/20 ML VIAL IV ONE (10:00)
[2016-11-18] MEDS ORDERED: PHENYLEPHRINE HCL 50 MG in NS 250 ML IV ONE (10:00)
[2016-11-18 12:03] LABS: ANION GAP 9 mEq/L (8-16); CALCIUM 9.5 mg/dL (8.5-10.4); CARBON DIOXIDE 27 mEq/l (22-31); CHLORIDE 89 mEq/L (97-110); CREATININE 0.6 mg/dL (0.6-1.0); GLOMERULAR FILTRATION RATE > 60; GLUCOSE 105 mg/dL (70-100); POTASSIUM 4.2 mEq/L (3.5-5.2); SODIUM 125 mEq/L (134-144)
[2016-11-18] MEDS ORDERED: MINERAL OIL 10 ML VIAL TP ONE (12:13)
[2016-11-18] MEDS ORDERED: PAPAVERINE HCL 60 MG/2 ML SDV ONE (12:14)
[2016-11-18] MEDS ORDERED: VERAPAMIL 5 MG/2 ML VIAL ONE (12:14)
[2016-11-18] MEDS ORDERED: MIDAZOLAM 2 MG/2 ML VIAL ONE (12:36)
[2016-11-18] MEDS ORDERED: PROPOFOL/EMULSION 500 MG/50 ML BOTTLE IV ONE (12:38)
[2016-11-18] MEDS ORDERED: fentaNYL 250 MCG/5 ML INJ ONE (12:38)
[2016-11-18] MEDS ORDERED: REMIFENTANIL HCL 1 MG VIAL ONE (12:38)
[2016-11-18] MEDS ORDERED: DEXMEDETOMIDINE HCL 400 MCG in NS 100 ML IV ONE (13:00)
[2016-11-18] MEDS ORDERED: HYDROmorphONE/DILAUDID 2 MG/ML INJ ONE (14:20)
[2016-11-18] MEDS ORDERED: MAGNESIUM SULF 2 GM/WATER 50 ML BAG IV ONE (16:02)
[2016-11-18] MEDS ORDERED: ROCURONIUM 100 MG/10 ML VIAL ONE (16:07)
[2016-11-18] MEDS ORDERED: DEXAMETHASONE 4 MG/ML VIAL ONE (16:07)
[2016-11-18] MEDS ORDERED: ONDANSETRON 4 MG/2 ML VIAL ONE (16:07)
--- NOTE | 2016-11-18 17:06 | POSTOPPROG ---
Post Op Note Date of Operation: 11/18/16 Surgeon: Nic Emmanuel Scoop Machine Operator: Liam Anesthesiologist: Maite Anesthesia: GET(General Endotracheal) Pre-op Diagnosis: USA, ASHD Procedure: SVG-RCA, EVH Inf/Abcess present in the surg proc area at time of surgery?: No EBL: 50-100 (2 blakes)
[2016-11-18] MEDS ORDERED: CEPACOL LOZENGE PO PRN (18:24)
[2016-11-18] MEDS ORDERED: D50W 25 GM/50 ML SYR IVP PRN (18:24)
[2016-11-18] MEDS ORDERED: PANTOPRAZOLE SODIUM 40 MG in NS 100 ML IV ONE (18:24)
[2016-11-18] MEDS ORDERED: POLYETHYLENE GLYCOL 3350 17 GM PKT PO PRN (18:24)
[2016-11-18] MEDS ORDERED: BISACODYL 10 MG SUPP PR PRN (18:24)
[2016-11-18] MEDS ORDERED: MAGNESIUM SULF 2 GM/WATER 50 ML IV ONE (18:24)
[2016-11-18] MEDS ORDERED: SODIUM CL NASAL 45 ML BTL EACHNARE PRN (18:24)
[2016-11-18] MEDS ORDERED: ALBUMIN 5% 250 ML IV PRN (18:24)
[2016-11-18] MEDS ORDERED: ACETAMINOPHEN 650 MG SUPP PR PRN (18:24)
[2016-11-18] MEDS ORDERED: MEPERIDINE 25 MG/ML SYR IVP PRN (18:24)
[2016-11-18] MEDS ORDERED: MAGNESIUM HYDROXIDE 30 ML UDCUP PO PRN (18:24)
[2016-11-18] MEDS ORDERED: LACTULOSE 20 GM/30 ML UDCUP PO PRN (18:24)
[2016-11-18] MEDS ORDERED: INSULIN REGULAR HUMAN 100 UNIT in NS 100 ML IV SCH (18:30)
[2016-11-18] MEDS ORDERED: NS 1,000 ML IV SCH ×2 (18:30)
--- NOTE | 2016-11-18 19:39 | CPEKG ---
Heart Rate: 76 RR Interval: 789 P-R Interval: 216 QRSD Interval: 88 QT Interval: 396 QTC Interval: 446 P [place]: 34 QRS [place]: 13 T Wave [place]: -65 EKG Severity - ABNORMAL ECG - EKG Impression: SINUS RHYTHM EKG Impression: NONSPECIFIC T ABNORMALITIES, INFERIOR LEADS Electronically Signed By: Jaison Thomas 20-Nov-2016 08:01:31
[2016-11-18] MEDS: POTASSIUM Cl (KCl) 50 ML IV PRN ×2 (19:48→20:56)
[2016-11-18] MEDS: FAMOTIDINE 20 MG/NACL 50 ML IV SCH (20:51)
[2016-11-18] MEDS ORDERED: CHLORHEXIDINE GLUCONATE 15 ML UDL PO SCH (21:00)
[2016-11-18] MEDS: fentaNYL 100 MCG/2 ML INJ IVP PRN ×2 (21:52→23:43)
[2016-11-18] MEDS: ceFAZolin 2 GM/DEXTROSE 100 ML IV SCH (22:00)
[2016-11-18 22:45] LABS: CALCULATED OXYGEN SATURATION 99 % (92-95); O2 CONCENTRATIION 50 % (0-100)
[2016-11-18 22:45] LABS: CALCULATED OXYGEN SATURATION 96 % (92-95); O2 CONCENTRATIION 40 % (0-100)
[2016-11-19] MEDS: fentaNYL 100 MCG/2 ML INJ IVP PRN ×3 (01:27→04:23)
--- NOTE | 2016-11-19 03:37 | GOP ---
[f rep st] OPERATIVE REPORT DATE OF OPERATION: 11/18/2016 SURGEON: Nic Emmanuel DO SUPERVISOR LABORATORY ANIMAL FACILITY: [facility] PA-C. ANESTHESIA: Josey Mckinney MD. PREOPERATIVE DIAGNOSIS: Unstable angina pectoris with single-vessel disease to the right coronary a rtery, status post multiple prior stenting. POSTOPERATIVE DIAGNOSIS: Unstable angina pectoris with single-vessel disease to the right coronary artery, status post multiple prior stenting. PROCEDURE PERFORMED: A single-vessel bypass with saphenous vein graft to the distal right coronary artery FINDINGS: Patient was noted to have 6 prior stents in the right coronary artery which was diseased due to previous cobalt radiation. She had attempted 7th stent placement which was unsuccessful, and she was referred for cardiac surgery because of persistent, unremitting, chest pain. DESCRIPTION OF PROCEDURE: She was consented for surgery, brought to the operating room, intubated, and monitoring lines were placed. She was prepped and draped in sterile classical manner. A sterno jihan was performed. Veins were harvested endoscopically from both thighs. The vein was excellent q uality, 3.8 mm graft. She was cannulated in the standard fashion. Cardiopulmonary bypass was begun . A cardioplegic arrest was obtained with antegrade cardioplegia and topical hypothermia. The righ t coronary artery was entirely stented to the PDA, at which point, it became soft after the takeoff of the PDA. There was a good, 2.8-3 mm vessel at that site. The vein graft was sewn end-to-side in to the vessel there and then brought off the ascending aorta with 5-0 Prolene. The cross-clamp was removed with suction on the ascending aortic vent. Spontaneous cardiac activity was noted to resume . Patient was easily weaned from bypass. The heparin was reversed with protamine. The cannula was removed and oversewn with 2 ventricular pacing wires. One left pleural and 1 mediastinal drain wer e placed. The thymic fat and pericardium were closed over the aorta only because of very fatty hear t, which would have been closed under tension with concerns about potentially kinking the graft. Th e sternum was closed in standard fashion. Patient was returned to ICU in stable condition. /[id number]/MODL
[2016-11-19] MEDS: METOCLOPRAMIDE 10 MG/2 ML VIAL IVP PRN ×2 (04:11→21:41)
[2016-11-19 04:22] LABS: % IMMATURE GRANULYOCYTES 0.5 % (0.0-1.1); ABSOLUTE IMMATURE GRANULOCYTES 0.08 10^3/uL (0.00-0.10); ADD DIFF? NO; ADD MORPH? NO; ADD SCAN? NO; ATYPICAL LYMPHOCYTE FLAG 0 (0-99); FRAGMENT RBC FLAG 0 (0-99); HEMATOCRIT 34.9 % (38.0-47.0); HEMOGLOBIN 12.2 g/dL (12.6-16.3); LEFT SHIFT FLG 20 (0-99); LIPEMIA HEMOLYSIS FLAG 90 (0-99); MEAN CELL HEMOGLOBIN 31.1 pg (27.9-34.1); MEAN PLATELET VOLUME 10.3 fL (8.7-11.7); PLATELET CLUMPS FLAG 0 (0-99); PLATELET COUNT 140 10^3/uL (150-400); RED BLOOD CELL COUNT 3.92 10^6/uL (4.18-5.33); RED CELL DISTRIBUTION WIDTH 15.3 % (11.5-15.2)
[2016-11-19 04:54] LABS: ANION GAP 5 mEq/L (8-16); CALCIUM 8.1 mg/dL (8.5-10.4); CARBON DIOXIDE 22 mEq/l (22-31); CHLORIDE 109 mEq/L (97-110); CREATININE 0.5 mg/dL (0.6-1.0); GLOMERULAR FILTRATION RATE > 60; GLUCOSE 93 mg/dL (70-100); POTASSIUM 4.1 mEq/L (3.5-5.2); SODIUM 136 mEq/L (134-144)
[2016-11-19] MEDS: HYDROCODONE/APAP 5/325 TAB PO PRN ×5 (06:52→21:42)
[2016-11-19] MEDS: HEPARIN 5,000 UNIT/0.5 ML SYR SC SCH ×3 (06:56→21:17)
[2016-11-19] MEDS: ceFAZolin 2 GM/DEXTROSE 100 ML IV SCH ×3 (06:56→21:19)
[2016-11-19] MEDS ORDERED: FUROSEMIDE 40 MG/4 ML VIAL IVP ONE (07:27)
--- NOTE | 2016-11-19 07:31 | SOAPPROG ---
SOAP Progress Note Assessment/Plan: POD #1: CABGx1 (SVG-RCA), EVH BLE CAD, unstable angina, multiple RCA stents with in-stent restenosis s/p CABGx1 - weaned from CPB without pressor/pacing need with preserved normal LV function. Extubated in the ICU. This AM: NSR with good blood pressure on minimal O2. Stable renal function with mild fluid-overload. Tolerating PO. - Plavix/ASA now, BB likely later today, statin when tolerating PO - DC AL/FC, CTs to bulb suction - SCDs/heparin SQ for DVT prophylaxis - PT for ambulation - Transfer to PCU Acute blood loss anemia with recent Plavix use - Stable s/p 2 U PRBC, monitor Subjective: Overall feels well. C/o some mild left scapula pain. Denies CP/SOB. In good spirits. Objective: Vital Signs Temp Pulse Resp BP Pulse Ox 36.5 C 92 15 122/63 H 97 11/19/16 06:00 11/19/16 06:00 11/19/16 06:00 11/19/16 06:00 11/19/16 06:00 Laboratory Results 11/19/16 04:10 11/19/16 04:10 11/18/16 11/19/16 11/20/16 05:59 05:59 05:59 Intake Total 1600 1675 Output Total 1600 2040 Balance 0 -365 PT 13.4 SEC (12.0-15.0) 11/16/16 19:25 INR 1.03 (0.83-1.16) 11/16/16 19:25 Physical Exam - Physical Exam General Appearance: WD/WN, alert, no apparent distress EENT: normal ENT inspection Neck: normal inspection Respiratory: No respiratory distress Cardiac/Chest: regular rate, rhythm Abdomen: non-tender, soft, No distended Skin: normal color, warm/dry Extremities: pedal edema Neuro/Psych: no motor/sensory deficits, alert, normal mood/affect, oriented x 3 ICD10 Worksheet Patient Problems: Problems Problem Status Onset Acute blood loss as cause of postoperative anemia Acute S/P CABG x 1 Acute Chest pain Acute Chronic Disease [facility]/Transitonal Care Acute Coronary artery disease Acute Acute coronary syndrome Acute
[2016-11-19] MEDS: FAMOTIDINE 20 MG/NACL 50 ML IV SCH (08:11)
[2016-11-19] MEDS ORDERED: ASPIRIN 81 MG CHEWABLE TAB TUBE PRN (09:00)
[2016-11-19] MEDS: SENNOSIDES/DOCUSATE SODIUM TAB PO SCH ×2 (09:32→21:19)
[2016-11-19] MEDS: CLOPIDOGREL BISULFATE 75 MG TAB PO SCH (09:33)
[2016-11-19] MEDS: PANTOPRAZOLE SODIUM 40 MG TAB PO SCH (09:33)
[2016-11-19] MEDS: MUPIROCIN 2% 22 GM OINT NS SCH ×2 (09:33→21:47)
[2016-11-19] MEDS: ASPIRIN 81 MG CHEWABLE TAB PO SCH (09:33)
[2016-11-19 16:05] LABS: POTASSIUM 3.5 mEq/L (3.5-5.2)
[2016-11-19] MEDS: METOPROLOL TARTRATE 25 MG TAB PO SCH (21:19)
[2016-11-20] MEDS: LORazepam 0.5 MG TAB PO PRN ×2 (02:28→23:03)
[2016-11-20] MEDS: HEPARIN 5,000 UNIT/0.5 ML SYR SC SCH (05:25)
[2016-11-20] MEDS: ceFAZolin 2 GM/DEXTROSE 100 ML IV SCH (05:26)
[2016-11-20 05:44] LABS: HEMATOCRIT 26.5 % (38.0-47.0); HEMOGLOBIN 9.2 g/dL (12.6-16.3); MEAN CELL HEMOGLOBIN 31.1 pg (27.9-34.1); MEAN CELL HEMOGLOBIN CONCENTR. 34.7 g/dL (32.4-36.7); MEAN CELL VOLUME 89.5 fL (81.5-99.8); RED BLOOD CELL COUNT 2.96 10^6/uL (4.18-5.33); RED CELL DISTRIBUTION WIDTH 15.7 % (11.5-15.2)
[2016-11-20] MEDS: HYDROCODONE/APAP 5/325 TAB PO PRN ×4 (05:58→21:46)
[2016-11-20] MEDS: LEVOTHYROXINE 100 MCG TAB PO SCH (06:02)
[2016-11-20 06:16] LABS: ANION GAP 5 mEq/L (8-16); CALCIUM 8.2 mg/dL (8.5-10.4); CARBON DIOXIDE 26 mEq/l (22-31); CHLORIDE 99 mEq/L (97-110); CREATININE 0.6 mg/dL (0.6-1.0); GLOMERULAR FILTRATION RATE > 60; GLUCOSE 97 mg/dL (70-100); POTASSIUM 3.9 mEq/L (3.5-5.2); SODIUM 130 mEq/L (134-144)
--- NOTE | 2016-11-20 07:24 | SOAPPROG ---
SOAP Progress Note Assessment/Plan: Assessment: POD#2 CABGx1 (SVG-RCA), EVH BLE Sx CAD/recurrent ISR w preserved LV systolic fx - s/p CABGx1 - Stable early postop course. No dysrhythmias. No sig volume overload. Secondary prevention with DAPT, BB uptitrated as tolerated, and statin. Ok to discontinue Plavix in 6 wks or once current Rx out. Acute expected blood loss anemia - Exacerbated by recent Plavix use. Stable s/p 2u PRBC. Plan: Keep blakes x 1 more day. Cont metoprolol 12.5 mg BID. Consider inc tonight if sufficient BP. Start daily diuresis. Inc activity and pulm toilet. Dispo - SNF in 2 days. 11/20/16 07:20 Subjective: Doing ok. Working on pain management. Has a hard time getting OOB, but once up feels like her activity tolerance is good. Objective: Vital Signs Temp Pulse Resp BP Pulse Ox 36.8 C 92 14 133/67 H 93 11/20/16 04:00 11/20/16 04:00 11/20/16 04:00 11/20/16 04:00 11/20/16 04:00 Laboratory Results 11/20/16 05:20 11/20/16 05:20 11/19/16 11/20/16 11/21/16 05:59 05:59 05:59 Intake Total 1675 2120 Output Total 2040 765 Balance -365 1355 PT 13.4 SEC (12.0-15.0) 11/16/16 19:25 INR 1.03 (0.83-1.16) 11/16/16 19:25 Stable HR, rhythm (albeit freq PACs), and BP. Positive fluid balance. +7kg overall. CXR-> left basilar atelectasis. CTOP still a bit high for removal. Labs ok. Physical Exam - Physical Exam General Appearance: alert, no apparent distress Respiratory: crackles (bases), other (Blakes x 2 to bulb suction, serosang drainage.) Cardiac/Chest: regular rate, rhythm, other (Sternum grossly stable. Sternotomy and B/L venots CDI. Vwires intact.) Abdomen: normal bowel sounds, non-tender, soft Skin: warm/dry Extremities: swelling (1+ gen) ICD10 Worksheet Patient Problems: Problems Problem Status Onset Acute blood loss as cause of postoperative anemia Acute Acute coronary syndrome Acute Coronary artery disease Acute S/P CABG x 1 Acute Chest pain Acute Chronic Disease [facility]/Transitonal Care Acute
[2016-11-20] MEDS: ASPIRIN 81 MG CHEWABLE TAB PO SCH (10:42)
[2016-11-20] MEDS: METOPROLOL TARTRATE 25 MG TAB PO SCH ×2 (10:42→20:10)
[2016-11-20] MEDS: SENNOSIDES/DOCUSATE SODIUM TAB PO SCH ×2 (10:42→20:10)
[2016-11-20] MEDS: PANTOPRAZOLE SODIUM 40 MG TAB PO SCH (10:43)
[2016-11-20] MEDS: CLOPIDOGREL BISULFATE 75 MG TAB PO SCH (10:43)
[2016-11-20] MEDS ORDERED: POTASSIUM CL 10 MEQ TAB PO ONE (15:00)
[2016-11-20] MEDS ORDERED: FUROSEMIDE 20 MG/2 ML VIAL IVP ONE (15:00)
[2016-11-20] MEDS: METOCLOPRAMIDE 10 MG/2 ML VIAL IVP PRN (16:23)
[2016-11-20] MEDS: PRESERVISION AREDS2 FORMULA EYE VIT 1 EACH PO SCH (19:23)
[2016-11-20 20:34] LABS: POTASSIUM 3.7 mEq/L (3.5-5.2)
[2016-11-20] MEDS ORDERED: POTASSIUM CL 20 MEQ TAB PO ONE (21:05)
[2016-11-21] MEDS: HYDROCODONE/APAP 5/325 TAB PO PRN ×2 (03:27→03:45)
[2016-11-21 04:22] LABS: HEMATOCRIT 24.8 % (38.0-47.0); HEMOGLOBIN 8.5 g/dL (12.6-16.3)
[2016-11-21 04:27] LABS: POTASSIUM 4.2 mEq/L (3.5-5.2)
[2016-11-21] MEDS: LEVOTHYROXINE 100 MCG TAB PO SCH (04:59)
[2016-11-21] MEDS: traMADol 50 MG TAB PO PRN ×3 (04:59→20:56)
--- NOTE | 2016-11-21 07:56 | SOAPPROG ---
SOAP Progress Note Assessment/Plan: POD #3: CABGx1 (SVG-RCA), EVH BLE CAD, unstable angina, multiple RCA stents with in-stent restenosis s/p CABGx1 - Plavix/ASA/BB/Statin for secondary prevention - PW to be removed, CT to remain until 5/6 - SCDs/heparin SQ for DVT prophylaxis - PT for ambulation Acute blood loss anemia with recent Plavix use s/p 2U PRBCs - H/H tredning down without signs/symptoms of active bleeding - monitor Subjective: Feels well. Still has some left scapular pain. Left leg pain improved. Objective: Vital Signs Temp Pulse Resp BP Pulse Ox 36.6 C 73 20 116/57 L 96 11/21/16 04:00 11/21/16 04:00 11/21/16 04:00 11/21/16 04:00 11/21/16 04:00 Laboratory Results 11/21/16 03:50 11/21/16 03:50 11/20/16 11/21/16 11/22/16 05:59 05:59 05:59 Intake Total 2120 840 Output Total 765 2130 Balance 1355 -1290 PT 13.4 SEC (12.0-15.0) 11/16/16 19:25 INR 1.03 (0.83-1.16) 11/16/16 19:25 Physical Exam - Physical Exam General Appearance: WD/WN, alert, no apparent distress EENT: normal ENT inspection Neck: normal inspection Respiratory: No respiratory distress Cardiac/Chest: regular rate, rhythm Abdomen: non-tender, soft, No distended Skin: warm/dry, other (B/L thighs with ecchymosis, L inner thigh with small soft hematoma) Neuro/Psych: no motor/sensory deficits, alert, normal mood/affect, oriented x 3 ICD10 Worksheet Patient Problems: Problems Problem Status Onset Acute blood loss as cause of postoperative anemia Acute Acute coronary syndrome Acute Coronary artery disease Acute Paroxysmal atrial fibrillation Acute S/P CABG x 1 Acute Chest pain Acute Chronic Disease Mgmt/Transitonal Care Acute
[2016-11-21] MEDS ORDERED: FUROSEMIDE 40 MG TAB PO SCH (09:00)
[2016-11-21] MEDS: CLOPIDOGREL BISULFATE 75 MG TAB PO SCH (09:58)
[2016-11-21] MEDS: ASPIRIN 81 MG CHEWABLE TAB PO SCH (09:58)
[2016-11-21] MEDS: PRESERVISION AREDS2 FORMULA EYE VIT 1 EACH PO SCH ×2 (09:58→20:57)
[2016-11-21] MEDS: SENNOSIDES/DOCUSATE SODIUM TAB PO SCH ×2 (09:59→20:57)
[2016-11-21] MEDS: METOPROLOL TARTRATE 25 MG TAB PO SCH ×2 (09:59→20:57)
[2016-11-21] MEDS: POTASSIUM CL 20 MEQ TAB PO SCH (09:59)
[2016-11-21] MEDS: FERROUS SULFATE 325 MG TAB PO SCH (10:29)
[2016-11-21] MEDS: ONDANSETRON DISINTEGRATING 4 MG TAB PO PRN ×2 (17:16→20:55)
[2016-11-21] MEDS ORDERED: METHYLNALTREXONE BROMIDE 12 MG/0.6 ML INJ SC ONE (17:53)
[2016-11-21] MEDS: ATORVASTATIN CALCIUM 40 MG TAB PO SCH (21:01)
[2016-11-21] MEDS ORDERED: ALBUMIN 5% 250 ML IV PRN (23:00)
[2016-11-21] MEDS ORDERED: ATROPINE SULFATE 1 MG/ML VIAL IVP PRN (23:00)
[2016-11-22] MEDS: LEVOTHYROXINE 100 MCG TAB PO SCH (06:34)
[2016-11-22 06:36] LABS: HEMATOCRIT 23.2 % (38.0-47.0); HEMOGLOBIN 7.8 g/dL (12.6-16.3)
[2016-11-22 06:58] LABS: POTASSIUM 4.6 mEq/L (3.5-5.2)
--- NOTE | 2016-11-22 08:09 | SOAPPROG ---
SOAP Progress Note Assessment/Plan: Assessment: POD#4 CABGx1 (SVG-RCA), EVH BLE Sx CAD/recurrent ISR w preserved LV systolic fx - s/p CABGx1 - Hemodynamically stable early postop course. No sig volume overload. Tubes and wires out. Secondary prevention with baby ASA, BB uptitrated as tolerated and statin. Plavix discontinued. Postop PAF - Brief episodes with CVR. Treated with BB, uptitrated as tolerated. Onset of intermittent sinus arrest/prolonged compensatory pauses at termination of AF last noc. Assoc with "uneasy" feeling reminiscent of prehospital sx. Sick sinus syndrome suspected. EP cards consulted for consideration PPM. Antinodals on hold. Anticoags on hold. Txd to SDU while awaiting device. Coumadin vs DOAC for [id number] score of 5 as per cards. Acute expected blood loss anemia - Exacerbated by recent Plavix use. Downward drift s/p 2u PRBC. No evidence active bleeding. Addtl 2u PRBC for hemodynamic support and mitigation ectopy. Plan: Transfuse 2u PRBC with 20mg IV lasix in between units. Tx to SDU for closer monitoring. NPO awaiting EP consult. Dispo - SNF when medically stable. 11/22/16 08:03 Subjective: Tired and low energy. Didn't get much rest last night on account of rhythm. Upset by news of potential pacemaker. Objective: Vital Signs Temp Pulse Resp BP Pulse Ox 36.7 C 71 18 117/50 L 97 11/22/16 07:30 11/22/16 07:30 11/22/16 07:30 11/22/16 07:30 11/22/16 07:30 Laboratory Results 11/22/16 06:25 11/22/16 06:25 11/21/16 11/22/16 11/23/16 05:59 05:59 05:59 Intake Total 840 900 200 Output Total 2130 1245 Balance -1290 -345 200 PT 13.4 SEC (12.0-15.0) 11/16/16 19:25 INR 1.03 (0.83-1.16) 11/16/16 19:25 In and out of AF w CVR yest pm. Several 3-6 sec pauses late last noc and before SR restored. No hypotension. Some queasiness, no distress. Holding SR as of midnight. Lytes ok. Recurrent downward drift in H/H. Balanced I/Os. Physical Exam - Physical Exam General Appearance: alert, no apparent distress Respiratory: lungs clear (grossly) Cardiac/Chest: regular rate, rhythm, other (Sternum grossly stable. Sternotomy CDI. ) Abdomen: non-tender, soft Skin: warm/dry Extremities: other (1+ gen edema. B/L venotomies CDI. Venot tracts no appreciable hematoma) ICD10 Worksheet Patient Problems: Problems Problem Status Onset Acute blood loss as cause of postoperative anemia Acute Acute coronary syndrome Acute Coronary artery disease Acute Paroxysmal atrial fibrillation Acute S/P CABG x 1 Acute Chest pain Acute Chronic Disease Mgmt/Transitonal Care Acute
[2016-11-22] MEDS: PRESERVISION AREDS2 FORMULA EYE VIT 1 EACH PO SCH ×2 (08:30→17:45)
[2016-11-22] MEDS: POTASSIUM CL 20 MEQ TAB PO SCH (08:31)
[2016-11-22] MEDS: SENNOSIDES/DOCUSATE SODIUM TAB PO SCH ×2 (08:31→19:57)
[2016-11-22] MEDS: FERROUS SULFATE 325 MG TAB PO SCH (08:32)
[2016-11-22] MEDS: traMADol 50 MG TAB PO PRN (08:32)
[2016-11-22] MEDS: CLOPIDOGREL BISULFATE 75 MG TAB PO SCH (08:33)
[2016-11-22] MEDS: ASPIRIN 81 MG CHEWABLE TAB PO SCH (08:42)
[2016-11-22] MEDS: METOPROLOL TARTRATE 25 MG TAB PO SCH (09:17)
[2016-11-22] MEDS: PREVACID 15 MG PO PRN (10:54)
--- NOTE | 2016-11-22 11:57 | GCON ---
[f rep st] CONSULTATION HISTORY OF PRESENT ILLNESS: This is an 86-year-old female with past medical history of coronary artery disease with multiple PCIs, breast cancer 40 years back with cobalt therapy, macular degeneration, osteopenia hypothyroidism, who was in the usual state of health when, in the morning, she had an episode of vomiting and jaw pain but also felt extremely lightheaded and dizzy and felt like she was going to collapse but was able to slowly sit herself down and came to the hospital. When she was in the hospital, evaluation was started, and she was found to have aortic stenosis. The patient was noted to have single-vessel disease and CABG was performed. The patient was recovering from the CABG well, and on day 4, she had atrial fibrillation post op day 4. At the termination of atrial fibrillation, she had a significant sinus pause, which continued for 6 seconds and after that, continued to have slow heart rate. On discussion with the patient, she mentioned that these are what her initial symptoms were when she came to the hospital. She was feeling lightheaded and decided to sit down. REVIEW OF SYSTEM: A 10-point review of systems, other than the above, is negative. PAST MEDICAL HISTORY: Coronary artery disease as mentioned in detail above. History of breast cancer 40 years ago with cobalt radiation therapy. Macular degeneration. Osteopenia. Hypothyroidism. MEDICATIONS: Reviewed. SOCIAL HISTORY: Nonsmoker. Quite active. Continues to drive. FAMILY HISTORY: Both parents are . PHYSICAL EXAM: VITAL SIGNS: Blood pressure 140/70, pulse of 68, respiratory rate 16. HEENT: Pupils equal, reacting to light accommodating. Anicteric sclerae. Extraocular movements are intact. Moist mucous membranes. No exudate. NECK: Supple. No thyromegaly. CHEST: Good air entry, bilateral, equal. No rales, rhonchi, rub. HEART: S1, S2 regular. No S3, no murmurs. ABDOMEN: Soft, nontender. No guarding, rigidity. Bowel sounds present. EXTREMITIES: No clubbing, trace edema. SKIN: Warm, dry, intact. NEUROLOGIC: Alert, oriented x3. Moving all 4 extremities. PSYCHIATRIC: Normal mood and affect. LABORATORY DATA: Preop echocardiogram shows EF of 67%. Mild basilar to mid- inferolateral hypokinesia. mild TR. Mild MR. [id number] aortic valve calcification. Tele monitor shows multiple episodes of atrial fibrillation with significant sinus bradycardia and sinus arrest lasting up to 6 seconds. Hematocrit of 23. Creatinine 0.6. IMPRESSION AND PLAN: This is an 86-year-old female who has had coronary artery disease with multiple PCIs and now bypass surgery. The patient has significant sick sinus syndrome and sinus pauses. With it the patient is symptomatic. In view of this, considering that the patient had preop symptomatic conversion pauses as per history, and now it has been documented postop also, and the fact that the patient will need to be on blood thinners because of her atrial fibrillation, I believe that she is high risk for fall and head injury or hip fracture. In view of this, because of her 6-second pause, we recommended dual- chamber pacemaker and explained the risks and benefits to the patient. She understands alternatives, risks, and benefits, and she is agreeable to it. Thank you for letting us participate in the patient's care. We will plan for pacemaker implant in the near future. /[id number]/MODL MTDD
[2016-11-22] MEDS ORDERED: FUROSEMIDE 20 MG/2 ML VIAL IVP ONE (12:00)
[2016-11-22] MEDS: HYDROCODONE/APAP 5/325 TAB PO PRN (14:21)
[2016-11-22] MEDS: ATORVASTATIN CALCIUM 40 MG TAB PO SCH (19:50)
[2016-11-22] MEDS: LORazepam 0.5 MG TAB PO PRN (19:50)
[2016-11-23 03:55] LABS: % IMMATURE GRANULYOCYTES 0.7 % (0.0-1.1); ABSOLUTE IMMATURE GRANULOCYTES 0.06 10^3/uL (0.00-0.10); ADD DIFF? NO; ADD MORPH? NO; ADD SCAN? NO; ATYPICAL LYMPHOCYTE FLAG 0 (0-99); FRAGMENT RBC FLAG 0 (0-99); HEMATOCRIT 31.1 % (38.0-47.0); HEMOGLOBIN 10.5 g/dL (12.6-16.3); LEFT SHIFT FLG 10 (0-99); LIPEMIA HEMOLYSIS FLAG 90 (0-99); MEAN CELL HEMOGLOBIN 30.5 pg (27.9-34.1); MEAN CELL HEMOGLOBIN CONCENTR. 33.8 g/dL (32.4-36.7); MEAN CELL VOLUME 90.4 fL (81.5-99.8); MEAN PLATELET VOLUME 9.8 fL (8.7-11.7); PLATELET CLUMPS FLAG 30 (0-99); PLATELET COUNT 161 10^3/uL (150-400); RED BLOOD CELL COUNT 3.44 10^6/uL (4.18-5.33); RED CELL DISTRIBUTION WIDTH 15.6 % (11.5-15.2)
[2016-11-23 04:06] LABS: INR 1.07 (0.83-1.16); PROTIME(PATIENT) 13.8 SEC (12.0-15.0)
[2016-11-23 04:07] LABS: APTT 26.3 SEC (23.0-38.0)
[2016-11-23 04:15] LABS: ALANINE AMINOTRANSFERASE 35 IU/L (9-52); ALBUMIN 2.6 g/dL (3.5-5.0); ALKALINE PHOSPHATASE 80 IU/L (38-126); ANION GAP 6 mEq/L (8-16); ASPARTATE AMINOTRANSFERASE 37 IU/L (14-46); BILIRUBIN,TOTAL 1.2 mg/dL (0.1-1.4); CALCIUM 8.2 mg/dL (8.5-10.4); CARBON DIOXIDE 29 mEq/l (22-31); CHLORIDE 94 mEq/L (97-110); CREATININE 0.5 mg/dL (0.6-1.0); GLOMERULAR FILTRATION RATE > 60; GLUCOSE 90 mg/dL (70-100); POTASSIUM 4.3 mEq/L (3.5-5.2); SODIUM 129 mEq/L (134-144); TOTAL PROTEIN 4.7 g/dL (6.3-8.2)
[2016-11-23] MEDS ORDERED: DIAZEPAM 5 MG TAB PO ONE ×2 (06:00→08:30)
[2016-11-23] MEDS ORDERED: NS 1,000 ML IV ONE (06:00)
[2016-11-23] MEDS ORDERED: BACITRACIN IRRIGATION/NS 50,000 UNITS/1,000 ML BTL IRR ONE (06:00)
[2016-11-23] MEDS ORDERED: diphenhydrAMINE 25 MG CAP PO ONE ×2 (06:00→08:30)
--- NOTE | 2016-11-23 08:14 | SOAPPROG ---
SOAP Progress Note Assessment/Plan: Assessment: POD#5 CABGx1 (SVG-RCA), EVH BLE Sx CAD/recurrent ISR w preserved LV systolic fx - s/p CABGx1 - Hemodynamically stable early postop course without vasoactive support. No sig volume overload. Tubes and wires out. Secondary prevention with baby ASA, BB when appropriate, and statin. Plavix discontinued. Postop PAF - Brief episodes with CVR. Treated with BB, uptitrated as tolerated. Onset of intermittent sinus arrest/prolonged compensatory pauses at termination of AF on POD#3. Assoc with "uneasy" feeling reminiscent of prehospital sx. Sick sinus syndrome suspected. EP cards consulted for consideration PPM. Antinodals on hold. Anticoags on hold. Txd to SDU while awaiting device. Coumadin vs DOAC for [id number] score of 5 as per cards. Acute expected blood loss anemia - Exacerbated by recent Plavix use. Stable s/p 4u PRBC. Follow. Plan: PPM today per EP. Reinitiation BB +/- amio per EP. Dispo - SNF tomorrow if medically stable. 11/23/16 08:11 Objective: Vital Signs Temp Pulse Resp BP Pulse Ox 36.8 C 120 H 20 112/96 H 96 11/23/16 08:00 11/23/16 08:00 11/23/16 08:00 11/23/16 08:00 11/23/16 08:00 Laboratory Results 11/23/16 03:30 11/23/16 03:30 11/22/16 11/23/16 11/24/16 05:59 05:59 05:59 Intake Total 900 760 Output Total 1245 1575 Balance -345 -815 PT 13.8 SEC (12.0-15.0) 11/23/16 03:30 INR 1.07 (0.83-1.16) 11/23/16 03:30 Persistent AF w CVR as of mid afternoon yest. Untreated. Min suppl O2 req. Adequate I/Os. Mild drop in Na. Physical Exam - Physical Exam General Appearance: alert, no apparent distress Respiratory: lungs clear Cardiac/Chest: irregularly irregular, other (Sternotomy CDI) Abdomen: soft Skin: warm/dry Extremities: swelling (1-2+. Venots ok.) ICD10 Worksheet Patient Problems: Problems Problem Status Onset Acute blood loss as cause of postoperative anemia Acute Acute coronary syndrome Acute Coronary artery disease Acute Paroxysmal atrial fibrillation Acute S/P CABG x 1 Acute Chest pain Acute Chronic Disease [facility]/Transitonal Care Acute
[2016-11-23] MEDS ORDERED: fentaNYL 100 MCG/2 ML INJ ONE ×2 (08:32→09:31)
[2016-11-23] MEDS ORDERED: LIDOCAINE 1% 30 ML SDV ONE (08:32)
[2016-11-23] MEDS ORDERED: BUPIVACAINE 0.5% 30 ML SDV ONE (08:33)
[2016-11-23] MEDS ORDERED: LIDO/EPI 1% **for epidural** 30 ML SDV ONE (08:33)
[2016-11-23] MEDS ORDERED: MIDAZOLAM 2 MG/2 ML VIAL ONE ×3 (08:33→10:21)
[2016-11-23] MEDS ORDERED: IOPAMIDOL (ISOVUE-300) 150 ML BTL IV ONE (08:34)
[2016-11-23] MEDS ORDERED: ceFAZolin 2 GM/DEXTROSE 100 ML IV ONE (09:00)
[2016-11-23] MEDS: METOPROLOL TARTRATE 25 MG TAB PO SCH ×2 (11:34→18:58)
[2016-11-23] MEDS: FERROUS SULFATE 325 MG TAB PO SCH (11:36)
[2016-11-23] MEDS: LEVOTHYROXINE 100 MCG TAB PO SCH (11:36)
[2016-11-23] MEDS: SENNOSIDES/DOCUSATE SODIUM TAB PO SCH ×2 (11:36→20:56)
[2016-11-23] MEDS: PRESERVISION AREDS2 FORMULA EYE VIT 1 EACH PO SCH ×2 (11:36→16:05)
[2016-11-23] MEDS: POTASSIUM CL 20 MEQ TAB PO SCH (11:37)
[2016-11-23] MEDS: ASPIRIN 81 MG CHEWABLE TAB PO SCH (11:37)
--- NOTE | 2016-11-23 11:50 | EPPROC ---
Electrophysiology Procedure Note: PROCEDURE PERFORMED: * Implantation of an A/V Pacemaker * Fluoroscopy INDICATION: This is a 86 yr old with SSS and symptomatic 6 sec of sinus pause post conversion from AF to SR. Pt was symptomatic with it and hence it was decided to implant a dual chamber pacemaker. PROCEDURE NOTE: Patient presented to the cardiac catherization laboratory in a fasting, post absorptive state. Cardiac quality control lab tech nurse administered moderate sedation. The left infraclavicular area was prepped and draped in the usual sterile fashion. Lidocaine plus bupivacaine was used for local anesthesia. Using a combination of blunt and sharp dissection and electrocautery, the dissection was carried down to the prepectoral fascia. All bleeding was controlled with electrocautery. Fluoroscopy was utilized during the entire procedure for venous access and placement of the leads. Using the usual technique, left cephalic vein was accessed and a glidewire was placed. Through this initially a 9F and later a 7F sheath was passed. Placement of the guidewires into the venous system was confirmed by low- pressure blood return and also by visualizing the guidewires advancing into the inferior vena cava. A purse string suture was applied around the guidewires. An active fixation ventricular lead was advanced into the right ventricular apex and screwed in place. An active fixation atrial lead was advanced into the right atrial appendage and screwed in place. The peel away sheaths were removed. Pacing thresholds, sensing parameters and lead impedances were measured. There was no diaphragmatic stimulation at maximum output. The leads were sutured to the prepectoral fascia with 3 nonabsorbable sutures each. The pocket was created and it was flushed using antibiotic solution. It was inspected for any bleeding. The leads were attached to the pacemaker securely. The pacemaker was inserted into the pocket and secured in place with a nonabsorbable suture. Fluoroscopy was performed in CEDILLO and AMHARIC planes to verify right-sided placement of the leads. Also fluoroscopy of the pacemaker pocket was performed. The pacemaker pocket was closed in 3 layers with absorbable vicryl sutures. Steristrips were placed. Appropriate dressing was applied. The patient left the cardiac catheterization laboratory in stable condition. Serial Numbers: * Device: Biotronik Eluna 8 SN [id number] * Atrial Lead: Biotronik Solia S45 SN [id number] * Ventricular Lead: Biotronik Solia S53 SN [id number] Stimulation Thresholds & Impedance Measurements: * Atrial Lead 1.3, n/a 368Ohms * Ventricular Lead 14.1, 0.8@0.4ms, 653Ohms Marc Pacing Parameters * Pacing mode: DDDR * Lower rate: 70 * Upper tracking rate: 120 * Upper sensor rate: 120 Patient Problems: Problems Problem Status Onset Acute blood loss as cause of postoperative anemia Acute Acute coronary syndrome Acute Coronary artery disease Acute Paroxysmal atrial fibrillation Acute S/P CABG x 1 Acute Chest pain Acute Chronic Disease Mgmt/Transitonal Care Acute
[2016-11-23] MEDS: HYDROCODONE/APAP 5/325 TAB PO PRN ×2 (16:19→23:10)
[2016-11-23] MEDS ORDERED: FUROSEMIDE 40 MG/4 ML VIAL IVP ONE (18:12)
[2016-11-23] MEDS: ATORVASTATIN CALCIUM 40 MG TAB PO SCH (20:56)
[2016-11-23] MEDS: LORazepam 0.5 MG TAB PO PRN (21:54)
[2016-11-23] MEDS ORDERED: METOPROLOL TARTRATE 50 MG TAB PO SCH (22:30)
[2016-11-24] MEDS: HYDROCODONE/APAP 5/325 TAB PO PRN ×4 (04:35→21:12)
[2016-11-24 07:30] LABS: % IMMATURE GRANULYOCYTES 0.7 % (0.0-1.1); ABSOLUTE IMMATURE GRANULOCYTES 0.07 10^3/uL (0.00-0.10); ADD DIFF? NO; ADD MORPH? NO; ADD SCAN? NO; ATYPICAL LYMPHOCYTE FLAG 0 (0-99); FRAGMENT RBC FLAG 0 (0-99); HEMATOCRIT 32.5 % (38.0-47.0); HEMOGLOBIN 10.7 g/dL (12.6-16.3); LEFT SHIFT FLG 10 (0-99); LIPEMIA HEMOLYSIS FLAG 80 (0-99); MEAN CELL HEMOGLOBIN 30.7 pg (27.9-34.1); MEAN CELL HEMOGLOBIN CONCENTR. 32.9 g/dL (32.4-36.7); MEAN CELL VOLUME 93.4 fL (81.5-99.8); MEAN PLATELET VOLUME 10.1 fL (8.7-11.7); PLATELET CLUMPS FLAG 0 (0-99); PLATELET COUNT 228 10^3/uL (150-400); RED BLOOD CELL COUNT 3.48 10^6/uL (4.18-5.33); RED CELL DISTRIBUTION WIDTH 15.6 % (11.5-15.2)
[2016-11-24 07:45] LABS: ANION GAP 5 mEq/L (8-16); CALCIUM 8.2 mg/dL (8.5-10.4); CARBON DIOXIDE 31 mEq/l (22-31); CHLORIDE 91 mEq/L (97-110); CREATININE 0.5 mg/dL (0.6-1.0); GLOMERULAR FILTRATION RATE > 60; GLUCOSE 78 mg/dL (70-100); POTASSIUM 4.1 mEq/L (3.5-5.2); SODIUM 127 mEq/L (134-144)
[2016-11-24] MEDS: SENNOSIDES/DOCUSATE SODIUM TAB PO SCH ×2 (08:33→21:12)
[2016-11-24] MEDS: PRESERVISION AREDS2 FORMULA EYE VIT 1 EACH PO SCH ×2 (08:35→16:09)
[2016-11-24] MEDS: ASPIRIN 81 MG CHEWABLE TAB PO SCH (08:35)
[2016-11-24] MEDS: METOPROLOL TARTRATE 50 MG TAB PO SCH ×2 (08:36→21:20)
--- NOTE | 2016-11-24 08:38 | SOAPPROG ---
SOAP Progress Note Assessment/Plan: Assessment: POD#6 CABGx1 (SVG-RCA), EVH BLE POD#1 dual chamber Biotronik Eluna PPM, DDDR mode, lower rate 70 Sx CAD/recurrent ISR w preserved LV systolic fx - s/p CABGx1 - Hemodynamically stable early postop course without vasoactive support. No sig volume overload. Tubes and wires out. Secondary prevention with baby ASA, BB uptitrated as tolerated, and statin. Plavix discontinued. Postop PAF - Brief episodes with CVR treated with BB. Onset of intermittent sinus arrest/prolonged compensatory pauses at termination of AF on POD#3. Assoc with "uneasy" feeling reminiscent of prehospital sx. Sick sinus syndrome suspected. EP cards consulted and PPM placed. Periprocedural rhythm AF. BB restarted. Rates variable, but intermittently elev. DOAC for [id number] score of 5. Acute expected blood loss anemia - Exacerbated by recent Plavix use. Stable s/p 4u PRBC. Follow. Plan: Inc Metoprolol to 25 mg BID. Consider 50 mg tonight if sufficient BP Start amio per protocol. Start Eliquis 2.5 mg BID. Inc activity as tolerated. Dispo - SNF ([facility] tomorrow if rhythm stable. 11/24/16 08:05 Subjective: Cranky. Pacer pocket sore. Not pulling as much on IS. Feels like her progress has stalled. Objective: Vital Signs Temp Pulse Resp BP Pulse Ox 36.6 C 99 15 117/74 97 11/24/16 08:00 11/24/16 08:00 11/24/16 08:00 11/24/16 08:00 11/24/16 08:00 Laboratory Results 11/24/16 04:40 11/24/16 04:40 11/23/16 11/24/16 11/25/16 05:59 05:59 05:59 Intake Total 760 1920 Output Total 1579 2150 Balance -815 -770 PT 13.8 SEC (12.0-15.0) 11/23/16 03:30 INR 1.07 (0.83-1.16) 11/23/16 03:30 Pacer interrogation this am -> nl fx, Vpacing ~15%. Remains in AF w CVR. Metop 12.5 mg started last noc. Min suppl O2 req. Adequate fluid balance. Recurrent drop in Na on diuretic. Physical Exam - Physical Exam General Appearance: alert, no apparent distress Respiratory: lungs clear (grossly) Cardiac/Chest: irregularly irregular, other (Sternum grossly stable. Sternotomy CDI. Left pacer pocket soft.) Abdomen: non-tender, soft Skin: warm/dry Extremities: swelling (trace) ICD10 Worksheet Patient Problems: Problems Problem Status Onset Acute blood loss as cause of postoperative anemia Acute Acute coronary syndrome Acute Coronary artery disease Acute Paroxysmal atrial fibrillation Acute S/P CABG x 1 Acute Chest pain Acute Chronic Disease Mgmt/Transitonal Care Acute
[2016-11-24] MEDS ORDERED: AMIODARONE HCL 200 ML IV ONE (08:39)
[2016-11-24] MEDS ORDERED: AMIODARONE HCL 100 ML IV ONE (08:39)
--- NOTE | 2016-11-24 08:48 | CPEKG ---
Heart Rate: 113 RR Interval: 531 QRSD Interval: 84 QT Interval: 300 QTC Interval: 412 QRS Happy: 13 T Wave Happy: -28 EKG Severity - ABNORMAL ECG - EKG Impression: ATRIAL FIBRILLATION WITH RAPID VENTRICULAR RESPONSE EKG Impression: BORDERLINE T ABNORMALITIES, DIFFUSE LEADS Electronically Signed By: Esequiel Steinberg 24-Nov-2016 18:40:28
[2016-11-24] MEDS: APIXABAN 2.5 MG TAB PO SCH ×2 (11:06→21:21)
--- NOTE | 2016-11-24 13:31 | PDCARPN ---
Cardiology Progress Note Chief Complaint: SSS with 6 second offset pauses Assessment/Plan: Assessment: 86-y/o F with PMH CAD/1V RCA disease with PCIs, recent attempt at PCI was unsuccessful, htn, dyslipidemia, hypoT, admitted for 1 V CABG. Noted to have 6- second offset pause when converting out of AF. #. SSS: s/p ppm with biotronik will have office to call her to set up outpatient followup #. CAD: s/p 1V CABG to RCA continue medical management with Atorva, Metoprolol resume ASA when cleared by CTS #. PAF: started on Apixaban continue Amiodarone for rhythm control #. htn: BP appears controlled Plan: Await CXR Pacer site stable Post-pacer instructions reviewed 11/24/16 13:27 11/24/16 13:31 Subjective: Had pacer incision site pain earlier today but improved now. No cp or dyspnea currently. Objective: Vital Signs (8 Hrs) Temp Pulse Resp BP Pulse Ox 11/24/16 11:21 98.2 F 76 17 106/59 L 99 11/24/16 08:00 97.8 F 99 15 117/74 97 Intake/Output (24 Hrs) 11/23/16 11/24/16 11/25/16 05:59 05:59 05:59 Intake Total 760 1920 Output Total 1575 2690 Balance -815 -770 Intake: Oral (ml) 760 1225 IV Intake (ml) 695 Output: Urine (ml) 1575 2690 Bedpan 725 2690 Toilet 850 Other: Weight 77.3 kg 77.3 kg Number of Voids Bedpan 2 Toilet 1 Number of Stools Bedpan 0 Toilet 1 Result Diagrams: 11/24/16 04:40 11/24/16 04:40 Telemetry: reviewed/ shows PAF - Physical Exam Constitutional: no apparent distress Eyes: anicteric sclera Ears, Nose, Mouth, Throat: moist mucous membranes Cardiovascular: regular rate and rhythm, systolic murmur Respiratory: clear to auscultate bilat, reduced air movement Gastrointestinal: normoactive bowel sounds, no tenderness Neurologic: AAOx3 Psychiatric: cooperative, interactive ICD10 Worksheet Patient Problems: Problems Problem Status Onset Acute blood loss as cause of postoperative anemia Acute Acute coronary syndrome Acute Coronary artery disease Acute Paroxysmal atrial fibrillation Acute S/P CABG x 1 Acute Chest pain Acute Chronic Disease Mgmt/Transitonal Care Acute
[2016-11-24] MEDS ORDERED: AMIODARONE HCL 540 MG in D5W 300 ML IV ONE (15:00)
[2016-11-24] MEDS: PREVACID 15 MG PO PRN (16:05)
[2016-11-24] MEDS: ATORVASTATIN CALCIUM 40 MG TAB PO SCH (21:19)
[2016-11-24] MEDS: LORazepam 0.5 MG TAB PO PRN (23:15)
[2016-11-25] MEDS: HYDROCODONE/APAP 5/325 TAB PO PRN ×3 (03:42→20:15)
[2016-11-25] MEDS: LEVOTHYROXINE 100 MCG TAB PO SCH (03:43)
[2016-11-25] MEDS ORDERED: AMIODARONE HCL 200 ML IV ONE (07:52)
[2016-11-25] MEDS ORDERED: AMIODARONE HCL 100 ML IV ONE (07:52)
--- NOTE | 2016-11-25 07:53 | SOAPPROG ---
KRISTEN Progress Note Assessment/Plan: POD #7: CABGx1 (SVG-RCA), EVH BLE CAD, unstable angina, multiple RCA stents with in-stent restenosis s/p CABGx1 - ASA/BB/Statin for secondary prevention - + 7kg since admission - Lasix/KCL BID Acute blood loss anemia with recent Plavix use s/p 4U PRBCs - Stable SSS s/p PPM - Stable PAF with RVR, palpitations - Continue Eliquis/BB - Amiodarone/Cardizem added this AM Disposition - To SNF once rhythm/rate controlled 11/25/16 09:15 Objective: Vital Signs Temp Pulse Resp BP Pulse Ox 36.7 C 83 18 124/71 H 97 11/25/16 07:10 11/25/16 07:10 11/25/16 07:10 11/25/16 07:10 11/25/16 07:10 Laboratory Results 11/24/16 04:40 11/24/16 04:40 11/24/16 11/25/16 11/26/16 05:59 05:59 05:59 Intake Total 1920 0 Output Total 2690 910 600 Balance -770 -910 -600 PT 13.8 SEC (12.0-15.0) 11/23/16 03:30 INR 1.07 (0.83-1.16) 11/23/16 03:30 Physical Exam - Physical Exam General Appearance: WD/WN, alert, no apparent distress EENT: normal ENT inspection Neck: normal inspection Respiratory: No respiratory distress Cardiac/Chest: tachycardia, irregularly irregular Abdomen: non-tender, soft, No distended Skin: normal color, warm/dry Extremities: pedal edema Neuro/Psych: no motor/sensory deficits, alert, normal mood/affect, oriented x 3 ICD10 Worksheet Patient Problems: Problems Problem Status Onset Acute blood loss as cause of postoperative anemia Acute Acute coronary syndrome Acute Coronary artery disease Acute Paroxysmal atrial fibrillation Acute S/P CABG x 1 Acute Chest pain Acute Chronic Disease Mgmt/Transitonal Care Acute
[2016-11-25] MEDS: METOPROLOL TARTRATE 50 MG TAB PO SCH ×2 (07:56→20:16)
[2016-11-25] MEDS: PRESERVISION AREDS2 FORMULA EYE VIT 1 EACH PO SCH ×2 (07:57→19:22)
[2016-11-25] MEDS: APIXABAN 2.5 MG TAB PO SCH ×2 (07:57→20:16)
[2016-11-25] MEDS: ASPIRIN 81 MG CHEWABLE TAB PO SCH (07:58)
[2016-11-25] MEDS ORDERED: DILTIAZEM CD 180 MG CAP PO SCH (09:00)
[2016-11-25] MEDS: FUROSEMIDE 40 MG TAB PO SCH ×2 (09:27→16:03)
[2016-11-25] MEDS: POTASSIUM CL 20 MEQ TAB PO SCH ×2 (09:27→16:02)
[2016-11-25] MEDS: SENNOSIDES/DOCUSATE SODIUM TAB PO SCH ×2 (09:28→20:19)
[2016-11-25] MEDS: METOPROLOL TARTRATE 5 MG/5 ML INJ IVP SCH ×3 (09:55→19:11)
[2016-11-25] MEDS ORDERED: AMIODARONE HCL 540 MG in D5W 300 ML IV ONE (15:00)
[2016-11-25] MEDS: ATORVASTATIN CALCIUM 40 MG TAB PO SCH (20:15)
[2016-11-25] MEDS: LORazepam 0.5 MG TAB PO PRN (23:47)
[2016-11-26] MEDS: LEVOTHYROXINE 100 MCG TAB PO SCH (03:34)
[2016-11-26] MEDS: HYDROCODONE/APAP 5/325 TAB PO PRN ×2 (03:34→09:28)
[2016-11-26 03:53] LABS: HEMATOCRIT 30.2 % (38.0-47.0); HEMOGLOBIN 10.1 g/dL (12.6-16.3); MEAN CELL HEMOGLOBIN 31.1 pg (27.9-34.1); MEAN CELL HEMOGLOBIN CONCENTR. 33.4 g/dL (32.4-36.7); MEAN CELL VOLUME 92.9 fL (81.5-99.8); RED BLOOD CELL COUNT 3.25 10^6/uL (4.18-5.33); RED CELL DISTRIBUTION WIDTH 14.6 % (11.5-15.2)
[2016-11-26 04:06] LABS: ANION GAP 6 mEq/L (8-16); CALCIUM 8.4 mg/dL (8.5-10.4); CARBON DIOXIDE 31 mEq/l (22-31); CHLORIDE 93 mEq/L (97-110); CREATININE 0.6 mg/dL (0.6-1.0); GLOMERULAR FILTRATION RATE > 60; GLUCOSE 95 mg/dL (70-100); POTASSIUM 4.6 mEq/L (3.5-5.2); SODIUM 130 mEq/L (134-144)
[2016-11-26] MEDS: PRESERVISION AREDS2 FORMULA EYE VIT 1 EACH PO SCH (07:45)
[2016-11-26 07:56] VITALS: BP 149/77; PULSE 74; RESP 20; TEMP 97.7; O2SAT 96
--- NOTE | 2016-11-26 08:04 | SOAPPROG ---
SOAP Progress Note Assessment/Plan: Assessment: POD#8 CABGx1 (SVG-RCA), EVH BLE POD#3 dual chamber Biotronik Eluna PPM, DDDR mode, lower rate 70 Sx CAD/recurrent ISR w preserved LV systolic fx - s/p CABGx1 - Stable early postop course. No sig volume overload. Tubes and wires out. Secondary prevention with baby ASA, BB uptitrated as tolerated, and statin. Plavix discontinued. Postop PAF - Brief episodes with CVR treated with BB. Onset of intermittent sinus arrest/prolonged compensatory pauses at termination of AF on POD#3. Assoc with "uneasy" feeling reminiscent of prehospital sx. Sick sinus syndrome suspected. EP cards consulted and PPM placed. Periprocedural rhythm AF. BB restarted. Rates variable, but intermittently elev. Amiodarone added with good effect. DOAC for [id number] score of 5. Acute expected blood loss anemia - Exacerbated by recent Plavix use. Stable s/p 4u PRBC. Follow. Plan: Ok for discharge to SNF ([facility] Instructions re diet, meds, activity, f/u and wound care to be reviewed in presence of daughter. 11/26/16 08:03 Subjective: Teary this morning, mostly by outside stressors. Wants to shower and go back to [facility]. Objective: Vital Signs Temp Pulse Resp BP Pulse Ox 36.5 C 74 20 149/77 H 96 11/26/16 07:54 11/26/16 07:54 11/26/16 07:54 11/26/16 07:54 11/26/16 07:54 Laboratory Results 11/26/16 03:45 11/26/16 03:45 11/25/16 11/26/16 11/27/16 05:59 05:59 05:59 Intake Total 0 1720.4 Output Total 910 3100 Balance -910 -1379.6 PT 13.8 SEC (12.0-15.0) 11/23/16 03:30 INR 1.07 (0.83-1.16) 11/23/16 03:30 Holding SR. SBP creep and CCB added. Improved fluid balance on BID lasix. Room air trial in progress. CXR-> tiny residual pleural effusions, no pulm vasc congestion, decr left basilar atelectasis. Labs ok. I Physical Exam - Physical Exam General Appearance: alert, no apparent distress Respiratory: lungs clear (grossly), other (pacer pocket soft, flat) Cardiac/Chest: regular rate, rhythm, other (Sternum grossly stable. Sternotomy and B/L venotomies CDI) Abdomen: non-tender, soft Skin: warm/dry Extremities: swelling (1+ dependent) ICD10 Worksheet Patient Problems: Problems Problem Status Onset Acute blood loss as cause of postoperative anemia Acute Acute coronary syndrome Acute Coronary artery disease Acute Paroxysmal atrial fibrillation Acute S/P CABG x 1 Acute Chest pain Acute Chronic Disease Mgmt/Transitonal Care Acute
[2016-11-26] MEDS: POTASSIUM CL 20 MEQ TAB PO SCH (09:21)
[2016-11-26] MEDS: METOPROLOL TARTRATE 50 MG TAB PO SCH (09:21)
[2016-11-26] MEDS: FUROSEMIDE 40 MG TAB PO SCH (09:22)
[2016-11-26] MEDS: ASPIRIN 81 MG CHEWABLE TAB PO SCH (09:22)
[2016-11-26] MEDS: APIXABAN 2.5 MG TAB PO SCH (09:22)
[2016-11-26] MEDS: SENNOSIDES/DOCUSATE SODIUM TAB PO SCH (09:23)
[2016-11-26] MEDS: PREVACID 15 MG PO PRN (09:23)
--- NOTE | 2016-11-26 12:03 | PDIAF ---
- Diagnosis Diagnosis: CAD/ISR s/p CABG, SSS with PAF s/p PPM Code Status: Full Code - Medication Management Discharge Medications: Medications to Continue on Transfer Atorvastatin Calcium [Lipitor 40 mg (*)] 40 mg PO HS 03/13/14 [Last Taken ] C/E/Zn/Cu/OM3/DHA/EPA/LUT/ZEAX [Preservision Areds 2 Softgel] 1 each PO BID #0 03/13/14 [Last Taken 11/16/16] LORazepam [Ativan (*)] 0.5 mg PO HS PRN 03/13/14 [Last Taken 11/14/16] Levothyroxine [Synthroid 100 mcg (*)] 100 mcg PO MOTUWETHFRSA@06 03/13/14 [Last Taken 11/15/16] amLODIPine BESYLATE [Norvasc 10 mg (*)] 10 mg PO HS 09/17/15 [Last Taken ] Lansoprazole [Prevacid] 15 mg PO DAILY PRN 11/13/16 [Last Taken 11/15/16] Nitroglycerin [Nitrostat 0.4 mg (*)] 0.4 mg SL Q5M PRN 11/13/16 [Last Taken Unknown] Acetaminophen [Tylenol 325mg (*)] 650 mg PO Q4HRS PRN #0 tab 11/26/16 [Last Taken Unknown] Amiodarone HCl [Pacerone (*)] 200 mg PO BID #45 tab 11/26/16 [Last Taken Unknown ] Apixaban [Eliquis] 2.5 mg PO BID #60 tab 11/26/16 [Last Taken Unknown] Aspirin [Aspirin 81mg (*)] 81 mg PO DAILY #0 tab.chew 11/26/16 [Last Taken Unknown] Furosemide [Lasix 40 MG (*)] 40 mg PO BID@0900,1500 #0 tab 11/26/16 [Last Taken Unknown] Metoprolol Tartrate [Lopressor 50 mg (*)] 50 mg PO BID #0 tab 11/26/16 [Last Taken Unknown] Polyethylene Glycol 3350 [Miralax 17 gm (*)] 17 gm PO DAILY PRN #0 pkt 11/26/16 [Last Taken Unknown] Potassium Cl [Klor-Con 20 meq (*)] 20 meq PO BIDDIUR #0 tab 11/26/16 [Last Taken Unknown] Sennosides/Docusate Sodium [Senokot-S] 1 - 2 tab PO BID PRN #0 tab 11/26/16 [ Last Taken Unknown] traMADol [Ultram 50 mg (*)] 50 - 100 mg PO Q4HRS PRN #0 tab 11/26/16 [Last Taken Unknown] Discharge Medications: Refer to the Discharge Home Medication list for PRN reason. PICC Care - Routine: N/A - Orders Services needed: Registered Nurse (cardiorespiratory monitoring), Physical Therapy (cardiac rehab, sternal precautions x 3 more weeks) Oxygen: prn SpO2 < 90% Diet Recommendation: cardiac -low fat low salt, fluid restriction (use comment for amount) (1800 ml daily until back to baseline wt and no swelling) Diet Texture: Regular Texture Diet, Thin Liquids, Meds Whole w/Liquids Weigh Patient: daily [place]: Not applicable Wound Care Instructions: daily soap and water. ok to leave open to air. avoid ointments until scabs off. avoid underwater immersion until scabs off. Activity/Weight Bearing Restrictions: sternal precautions x 3 weeks. avoid lifting > 10 lbs with outstretched arm. avoid push/pull activities Additional: Call [facility] for resting HR < 60 or > 130, SBP < 90 or > 150, supplemental O2 req > 3 Lpm, overnight wt gain > 2 lbs or progressive edema, any wound concerns - Labs/Radiology BMP Date: 12/01/16 CBC Date: 12/01/16 Imaging Orders: CXR prior to surgical appointment. Please budget 30min to stop by main ER Call or Fax Lab and Imaging Results to: Fax results to Dr Emmanuel's office, c/o Rosamaria Humphreys - Follow Up Care Current Providers and Referrals: Yoandy Astudillo MD [Medical Doctor] - (followup within 2 wks of release from SNF. ) Nic Emmanuel DO [Doctor of Osteopathy] - 12/02/16 2:15 pm Patient,NotPresent [Unknown] - As per Instructions
--- NOTE | 2016-11-26 17:20 | PDDCSUM ---
Discharge Summary Discharge Summary: DATE OF ADMISSION: 11/16/16 DATE OF DISCHARGE: 11/26/16 DISPOSITION: [facility], PRINCIPAL DISCHARGE DIAGNOSES: 1. Unstable angina with known instent restenosis of right coronary artery, treated with coronary artery bypass grafting. 2. Mild to moderate carotid artery atherosclerosis. 3. Mild diuretic induced hyponatremia. 4. HTN 5. Acute expected blood loss anemia 6. Postoperative sick sinus syndrome, treated with placement of a permanent pacemaker DISCHARGE MEDICATIONS: As on admission with the following adjustments: 1. Discontinue Plavix. 2. Reduce metoprolol tartrate to 50 mg BID. 3. Hold Lisinopril 40 mg daily. 4. Hold Losartan 50 mg daily. 5. Hold Indapamide 2.5 mg daily. NEW medications: 1. Amiodarone 200 mg BID thru 12/03, then 200 mg daily x 3 weeks or as directed. 2. Eliquis 2.5 mg BID x 1 month or as directed. 3. Lasix 40 mg BID until back to baseline weight and no swelling. 4. KlorCon 20 mEq BID with lasix. 5. Tramadol 50 mg, 1/2 to 2 tabs q 4-8h prn incisional discomfort. 6. ASA 81 mg daily. FOLLOW UP APPOINTMENTS: 1. CV surgery: with Dr Emmanuel at [facility] on 12/02 at 2:15pm. 2. Cardiology: with Dr Thomas or Dr Maher at [facility] within 4-6 weeks. Appointment to be established during surgical visit. FOLLOW UP TESTING: CBC and BMP on 12/01. Results to [facility]. CXR prior to surgical appointment. HISTORY OF PRESENT ILLNESS: 86 yo female with anginal symptoms, awaiting surgical consultation for CABG after unsuccessful PCI of recurrent stent failure, admitted with unstable angina. Assoc with mild LVDD and mild hyponatremia. No overt CHF, dysrhythmia, LVSD, significant valvular dysfunction, or prohibitive neurologic risk. Consented for single vessel bypass. Venous conduit planned due to length of graft needed and possible atretic mammary arteries s/p remote chest radiation for breast cancer. ALLERGIES/SENSITIVITIES: sulfa [employer]LE [employer]IPMENT [employer]ANER: CV surgery ([facility]), EP Cardiology ([facility]). PROCEDURES/IMAGIN/1 ([facility]): Transthoracic echocardiogram 11/17 Carotid ultrasound 11/18 ([facility]): Coronary artery bypass grafting x 1 (SV-PDAR). Endoscopic vein harvest bilateral thighs (right GSV qualitatively unsuitable). 11/23 ([facility]): Implantation of a dual chamber Biotronic Eluna permanent pacemaker. Pacing mode DDDR. Lower rate 70 ppm. ABBREVIATED HOSPITAL COURSE BY ACTIVE PROBLEM LIST: 1. Sx single vessel CAD w preserved LV systolic fx - s/p CABGx1. Extubated without incident. Moderate volume overload actively diuresed with stable renal fx and no significant electrolyte imbalance. Secondary prevention with baby ASA , BB uptitrated as tolerated, and statin. Plavix no longer indicated. 2. Postop PAF - with VVR. Treatment with BB complicated by symptomatic asystolic pauses up to 6 sec. Sick sinus syndrome suspected. EP cards consulted and PPM placed. Recurrent PAF w occ RVR suppressed with amiodarone and escalating doses of BB. DOAC for [id number] score of 5. 3. Acute expected blood loss anemia - Exacerbated by Plavix use. Stable s/p 4u PRBC. H/H > 10/30 maintained. DISCHARGE CLINICAL INFORMATION: Sternum grossly stable. Sternotomy and bilateral LE venotomies CDI, sutured, + Dermabond. HR 70s, sinus SBP 110s-140s. SpO2 > 89% on room air. Wt 5.8 kg above admission at 71 kilos. WBC 8.5, Hgb 10.1, HCT 30.2, Plt 254, Na 130, K 4.6, Cr 0.6
== END 2016-11-26 12:54 | DRG 236 ==
LOC: EDUNIT# → F2W 21:05 → F2N 11-18 14:38 → F2W 11-19 16:01 → F2N 11-22 11:01 → F2W 11-23 18:28
PROVIDERS: ADMIT Thoracic Surgery (Cardiothoracic Vascular Surgery); ATTEND Thoracic Surgery (Cardiothoracic Vascular Surgery)
PROC: 06BQ4ZZ Excision of Left Saphenous Vein, Percutaneous Endoscopic Approach (ICD-10-PCS; principal; 2016-11-18 13:00)
PROC: 30233N1 Transfusion of Nonautologous Red Blood Cells into Peripheral Vein, Percutaneous Approach (ICD-10-PCS; principal; 2016-11-18 13:00)
PROC: 5A1221Z Performance of Cardiac Output, Continuous (ICD-10-PCS; principal; 2016-11-18 13:00)
PROC: 021009W Bypass Coronary Artery, One Artery from Aorta with Autologous Venous Tissue, Open Approach (ICD-10-PCS; principal; 2016-11-18 13:00)
PROC: 0JH636Z Insertion of Pacemaker, Dual Chamber into Chest Subcutaneous Tissue and Fascia, Percutaneous Approach (ICD-10-PCS; 2016-11-23)
PROC: 02H63JZ Insertion of Pacemaker Lead into Right Atrium, Percutaneous Approach (ICD-10-PCS; 2016-11-23)
PROC: 02HK3JZ Insertion of Pacemaker Lead into Right Ventricle, Percutaneous Approach (ICD-10-PCS; 2016-11-23)
DX: I25.110 Atherosclerotic heart disease of native coronary artery with unstable angina pectoris (principal); T82.855A Stenosis of coronary artery stent, initial encounter; I65.29 Occlusion and stenosis of unspecified carotid artery; E87.1 Hypo-osmolality and hyponatremia; T50.1X5A Adverse effect of loop [high-ceiling] diuretics, initial encounter; D62 Acute posthemorrhagic anemia; I10 Essential (primary) hypertension; I49.5 Sick sinus syndrome; E78.5 Hyperlipidemia, unspecified; E03.9 Hypothyroidism, unspecified; H35.30 Unspecified macular degeneration; Z85.3 Personal history of malignant neoplasm of breast; Z90.11 Acquired absence of right breast and nipple; Z79.02 Long term (current) use of antithrombotics/antiplatelets
CPT/HCPCS: 82947-QW; 85520-90; 92610-GN; 97116-GP; 97161-GP; 97165-GO; 97530-GO; 97530-GP; 97535-GO; C1725; C1769; C1785; C1887; C1898; G8978-GP-CL; G8979-GP-CI; G8987-GO-CL; G8988-GO-CJ; G8996-GN-CH; G8997-GN-CH; G8998-GN-CH; J0153; J0282; J0461; J0583; J0690; J1100; J1170; J1200; J1265; J1644; J1650; J1815; J2001; J2150; J2212; J2250; J2260; J2370; J2405; J2440; J2704; J2720; J2765; J2930; J3010; J7060; P9016; P9041; Q9967

== ENCOUNTER → 2016-12-02 | Outpatient (CLI) | payer OTHER, BC | LOC: FIMAGING 13:40 | PROVIDERS: ATTEND Internal Medicine | DX: Z09 Encounter for follow-up examination after completed treatment for conditions other than malignant neoplasm (principal); J90 Pleural effusion, not elsewhere classified; J98.11 Atelectasis; Z95.1 Presence of aortocoronary bypass graft; Z95.0 Presence of cardiac pacemaker ==

== ENCOUNTER → 2016-12-23 | Outpatient (CLI) | payer OTHER, BC | LOC: FIMAGING 12:58 | PROVIDERS: ATTEND Internal Medicine Cardiovascular Disease | DX: J90 Pleural effusion, not elsewhere classified (principal); I25.10 Atherosclerotic heart disease of native coronary artery without angina pectoris; Z95.0 Presence of cardiac pacemaker ==

== ENCOUNTER → 2018-01-25 | Outpatient (CLI) | payer OTHER, BC | LOC: BHFA 10:00 | PROVIDERS: ATTEND Internal Medicine Cardiovascular Disease | DX: R06.02 Shortness of breath (principal); I10 Essential (primary) hypertension ==

== ENCOUNTER → 2018-04-27 | Outpatient (CLI) | payer OTHER, BC | LOC: FCPNEURO 21:00 | PROVIDERS: ATTEND Psychiatry & Neurology Sleep Medicine | DX: G47.33 Obstructive sleep apnea (adult) (pediatric) (principal) ==

== ENCOUNTER 2018-08-17 08:18 | Observation (INO) | payer OTHER, BC ==
--- NOTE | 2018-08-17 08:37 | EDPHY ---
H & P Stated Complaint: ESTEBAN groin pain Time Seen by Provider: 08/17/18 08:37 - Personal History Current Tetanus/Diphtheria Vaccine: Yes Current Tetanus Diphtheria and Acellular Pertussis (TDAP): Yes - Medical/Surgical History Hx Asthma: Yes Hx Chronic Respiratory Disease: No Hx Diabetes: No Hx Cardiac Disease: Yes Hx Renal Disease: No Hx Cirrhosis: No Hx Alcoholism: No Hx HIV/AIDS: No Hx Splenectomy or Spleen Trauma: No Other PMH: PMH- cad, htn, hld, hypothyroid, breast CA, osteopenia, cataracts, macular degeneration, L. wrist fracture. PSH- 6 stents, right radical mastectomy, CABG - Social History Smoking Status: Former smoker Constitutional: Initial Vital Signs Temperature (C) 36.5 C 08/17/18 08:25 Heart Rate 92 08/17/18 08:25 Respiratory Rate 16 08/17/18 08:25 Blood Pressure 155/99 H 08/17/18 08:25 O2 Sat (%) 92 08/17/18 08:25 O2 Delivery Mode Room Air Allergies/Adverse Reactions: Sulfa (Sulfonamide Antibiotics) Allergy (Unknown, Verified 08/17/18 08:24) Unknown Home Medications: Medication Instructions Recorded Atorvastatin Calcium [Lipitor 40 40 mg PO HS 03/13/14 mg (*)] C/E/Zn/Cu/OM3/DHA/EPA/LUT/ZEAX 1 each PO BID #0 03/13/14 [Preservision Areds 2 Softgel] Levothyroxine [Synthroid 100 mcg 100 mcg PO MOTUWETHFRSA@06 03/13/14 (*)] amLODIPine BESYLATE [Norvasc 10 mg 10 mg PO HS 09/17/15 (*)] Lansoprazole [Prevacid] 15 mg PO DAILY PRN 11/13/16 Nitroglycerin [Nitrostat 0.4 mg 0.4 mg SL Q5M PRN 11/13/16 (*)] Apixaban [Eliquis] 5 mg PO BID 08/17/18 Beclomethasone Qvar 80 [Qvar 80 1 inh IH BID 08/17/18 Redihaler (*)] Furosemide [Lasix 20 MG (*)] 20 mg PO DAILY 08/17/18 Metoprolol Tartrate [Lopressor 100 100 mg PO DAILY 08/17/18 mg (*)] Metoprolol Tartrate [Lopressor 50 50 mg PO HS 08/17/18 mg (*)] Potassium Cl [Klor-Con] 10 meq PO DAILY 08/17/18 Remeron 08/17/18 Tobramycin/Dexameth [Tobradex opht 1 drops EACHEYE HS 08/17/18 drops (*)] Tobramycin/Dexamethasone [Tobradex 1 colin OP HS 08/17/18 Eye Ointment] Medical Decision Making - Diagnostics Imaging Results: Imaging Impressions Chest X-Ray 08/17/18 08:51 Impression: 1. No acute process. 2. Chronic mild airways disease. No pneumonia. 3. Minimal cardiomegaly. No failure. Imaging: I viewed and interpreted images myself ED Course/Re-evaluation: CHIEF COMPLAINT: Bilateral neck and groin pain HISTORY OF PRESENT ILLNESS: The patient is an 86-year-old female with a history of CAD, pacemaker, and 6 cardiac stents complaining of bilateral neck and groin pain. For the last several months she has felt more short of breath while walking and had "mild cardiac symptoms". She did not seek any treatment for her dyspnea. After developing the neck and groin pain she initially thought that these symptoms were due to working out as she has never had them before. She did have a burning sensation in her shins and her feet have been more cold than normal. Due to this pain she took nitroglycerin which alleviated her symptoms. She spoke with a physician who advised that the patient have an EKG, echo, and stress test. The patient was in [place] when these symptoms developed, so she decided to fly back last night and came directly to the emergency department from the airport. No fever, headache, chest pain, shortness of breath, abdominal pain, urinary or bowel complaints, numbness, paresthesias. REVIEW OF SYSTEMS: A comprehensive 10 system review of systems is otherwise negative aside from elements mentioned in the history of present illness and medical decision making. PHYSICAL EXAM: HR, BP, O2 Sat, RR. Temp noted General Appearance: Alert, well hydrated, appropriate, and non-toxic appearing. Head: Atraumatic without scalp tenderness or obvious injury Eyes: Pupils equal, round, reactive to light and accommodation, EOMI, no trauma , no injection. Ears: Clear bilaterally, no perforation, normal landmarks Nose: Atraumatic, no rhinorrhea, clear. Throat: There is no erythema or exudates, no lesions, normal tonsils, mucus membranes moist. Neck: Supple, 2+ carotid upstroke, nontender, no lymphadenopathy. Respiratory: No retractions, no distress, no wheezes, and no accessory muscle use. Lungs are clear to auscultation bilaterally. Cardiovascular: Regular rate and rhythm, no murmurs, rubs, or gallops. Bilateral carotid, radial, dorsalis pedis, and posterior tibial pulses intact. Good capillary refill all extremities. Gastrointestinal: Abdomen is soft, nontender, non-distended, no masses, no rebound, no guarding, no peritoneal signs. Musculoskeletal: Normal active ROM of all extremities, atraumatic. Neurological: Alert, appropriate, and interactive. The patient has normal DTRs and non-focal cranial nerves, motor, sensory, and cerebellar exam. Skin: No rashes, good turgor, no nodules on palpation. Past medical history: CAD, pacemaker, hypertension, hyperlipidemia, hypothyroidism, breast CA, osteopenia, cataracts, macular degeneration. Past surgical history: Cardiac stents, CABG mastectomy Social history: Retired, lives in [place], single DIAGNOSTICS/PROCEDURES/CRITICAL CARE TIME: EKG: The 12 lead EKG was interpreted by myself as sinus rhythm with a rate of 83 , probable left atrial enlargement. See hard copy and/or "tracemaster" electronic copy for interpretation. Chest x-ray: No acute process. Chronic mild airways disease. No pneumonia. Minimal cardiomegaly. No failure. DIFFERENTIAL DIAGNOSIS: The differential diagnosis for the patient's groin pain included but was not limited to hypoalbuminemia, congestive heart failure, cor pulmonale, venous stasis, trauma, and DVT. MEDICAL DECISION MAKING: The patient is an 86-year-old female with a history of CAD, CABG, pacemaker, and 6 cardiac stents who presents after developing bilateral neck and groin pain as well as exertional shortness of breath. Her pain did improve after taking nitroglycerin at home. She has a normal physical exam and good groin and pedal pulses. She does have a 2/3 systolic ejection murmur. Labs, EKG, and chest x-ray ordered. 0839: I reviewed patient's EKG which reveals a sinus rhythm with a rate of 83. I also reviewed patient's old EKG from 11/24/16. 0946: I reviewed patient's labs which reveal an elevated D-dimer, but normal troponin and creatinine. Patient's d-dimer is normal for her age and she does not require a chest CTA. She will need to be admitted for further workup and evaluation. 0958: Reassessed patient and discussed imaging and laboratory findings. I have discussed the plan for admission with the patient and her family. They are comfortable with the plan for admission. 1007: I consulted with Dr. Fung, bearing ring assembler, regarding this patient. He agrees to consult on this patient during her admission. 1009: I consulted with the hospitalist service, Dr. Mccormick accepts admission of this patient to the PCU. 1050: Patient's chest x-ray reveals no acute process; she is safe to be transferred to the floor. - Data Points Laboratory Results: Laboratory Results 08/17/18 09:00 08/17/18 09:00 08/17/18 08/17/18 08/17/18 09:06 09:00 09:00 WBC RBC Hgb Hct MCV MCH MCHC RDW Plt Count MPV Neut % (Auto) Lymph % (Auto) Maverick % (Auto) Eos % (Auto) Baso % (Auto) Nucleat RBC Rel Count Absolute Neuts (auto) Absolute Lymphs (auto) Absolute Monos (auto) Absolute Eos (auto) Absolute Basos (auto) Absolute Nucleated RBC Immature Gran % Immature Gran # PT 14.7 SEC SEC (12.0-15.0) INR 1.13 (0.83-1.16) APTT 31.2 SEC SEC (23.0-38.0) D-Dimer 0.57 ug/mLFEU H ug/mLFEU (0.00-0.50) Sodium 139 mEq/L mEq/L (135-145) Potassium 3.5 mEq/L mEq/L (3.5-5.2) Chloride 103 mEq/L mEq/L (97-110) Carbon Dioxide 27 mEq/l mEq/l (22-31) Anion Gap 9 mEq/L mEq/L (6-14) BUN 14 mg/dL mg/dL (7-23) Creatinine 0.6 mg/dL mg/dL (0.6-1.0) Estimated GFR > 60 Glucose 101 mg/dL H mg/dL (70-100) Calcium 9.4 mg/dL mg/dL (8.5-10.4) Magnesium 2.0 mg/dL mg/dL (1.6-2.3) POC Troponin I 0.00 ng/mL ng/mL (0.00-0.08) NT-Pro-B Natriuret Pep 420 pg/mL pg/mL (0-450) 08/17/18 09:00 WBC 9.83 10^3/uL H 10^3/uL (3.80-9.50) RBC 4.53 10^6/uL 10^6/uL (4.18-5.33) Hgb 14.2 g/dL g/dL (12.6-16.3) Hct 43.5 % % (38.0-47.0) MCV 96.0 fL fL (81.5-99.8) MCH 31.3 pg pg (27.9-34.1) MCHC 32.6 g/dL g/dL (32.4-36.7) RDW 13.8 % % (11.5-15.2) Plt Count 229 10^3/uL 10^3/uL (150-400) MPV 9.5 fL fL (8.7-11.7) Neut % (Auto) 77.3 % H % (39.3-74.2) Lymph % (Auto) 14.4 % L % (15.0-45.0) Maverick % (Auto) 6.6 % % (4.5-13.0) Eos % (Auto) 0.6 % % (0.6-7.6) Baso % (Auto) 0.4 % % (0.3-1.7) Nucleat RBC Rel Count 0.0 % % (0.0-0.2) Absolute Neuts (auto) 7.59 10^3/uL H 10^3/uL (1.70-6.50) Absolute Lymphs (auto) 1.42 10^3/uL 10^3/uL (1.00-3.00) Absolute Monos (auto) 0.65 10^3/uL 10^3/uL (0.30-0.80) Absolute Eos (auto) 0.06 10^3/uL 10^3/uL (0.03-0.40) Absolute Basos (auto) 0.04 10^3/uL 10^3/uL (0.02-0.10) Absolute Nucleated RBC 0.00 10^3/uL 10^3/uL (0-0.01) Immature Gran % 0.7 % % (0.0-1.1) Immature Gran # 0.07 10^3/uL 10^3/uL (0.00-0.10) PT INR APTT D-Dimer Sodium Potassium Chloride Carbon Dioxide Anion Gap BUN Creatinine Estimated GFR Glucose Calcium Magnesium POC Troponin I NT-Pro-B Natriuret Pep Point of Care Test Results: Chemistry 08/17/18 09:06 POC Troponin I 0.00 ng/mL ng/mL (0.00-0.08) Departure - Departure Disposition: [facility] Inpatient Acute Clinical Impression: Other and unspecified angina pectoris, Exertional dyspnea, Bilateral groin pain Atrial fibrillation Qualifiers: Atrial fibrillation type: unspecified Qualified Code(s): I48.91 - Unspecified atrial fibrillation Condition: Fair Referrals: Itz Magana MD [Primary Care Provider] - As per Instructions Report Scribed for: Hernán Shrestha Report Scribed by: Miryam Arias Date of Report: 08/17/18 Time of Report: 10:00
[2018-08-17 09:13] LABS: PLATELET COUNT 229 10^3/uL (150-400)
[2018-08-17 09:29] LABS: INR 1.13 (0.83-1.16); PROTIME(PATIENT) 14.7 SEC (12.0-15.0)
[2018-08-17] MEDS ORDERED: IOHEXOL 350mgI/ML (OMNIPAQUE) 150 ML BTL IV ONE (09:54)
[2018-08-17] MEDS ORDERED: ACETAMINOPHEN 325 MG TAB PO PRN (10:42)
[2018-08-17] MEDS ORDERED: ONDANSETRON 4 MG/2 ML VIAL IVP PRN (10:42)
[2018-08-17] MEDS: NITROGLYCERIN 0.4 MG BTL SL PRN ×2 (11:55→12:21)
--- NOTE | 2018-08-17 12:00 | CPEKG ---
Test Reason : OPEN Blood Pressure : / mmHG Vent. Rate : 083 BPM Atrial Rate : 084 BPM P-R Int : 191 ms QRS Dur : 090 ms QT Int : 351 ms P-R-T Axes : 027 042 013 degrees QTc Int : 413 ms Sinus rhythm Probable left atrial enlargement Confirmed by Hernán Shrestha ([id number]) on 08/17/2018 12:00:20 PM Referred By: Hernán Shrestha Confirmed By:Hernán Shrestha
--- NOTE | 2018-08-17 12:00 | CPEKG ---
Test Reason : OPEN Blood Pressure : / mmHG Vent. Rate : 092 BPM Atrial Rate : 093 BPM P-R Int : 208 ms QRS Dur : 089 ms QT Int : 348 ms P-R-T Axes : -51 046 001 degrees QTc Int : 431 ms Atrial-paced complexes Confirmed by Hernán Shrestha ([id number]) on 08/17/2018 11:59:55 AM Referred By: Natanael Mccormick Confirmed By:Hernán Shrestha
--- NOTE | 2018-08-17 14:13 | PDGENHP ---
History and Physical - Chief Complaint groin and neck pain - History of Present Illness 88yo F with history of CAD s/p numerous RCA stents and 1 vessel bypass grafting of RCA in 2017 presents with bilateral groin and neck/jaw pain. She was vacationing in [place] and actually returned to [place] to seek medical attention. Her bilateral groin pain started in April but has become progressively worse and now is almost constant but worsened with leg flexion. No association with exertion/walking. No erythema or bruising. No leg claudication symptoms. No bowel/bladder incontinence. No foot/toe wounds. This has been unrelieved by tylenol but is relieved with sublingual nitroglycerin. Her jaw/neck pain is mostly located on the right side. This began just a few days ago and is becoming more intense and frequent. No association with exertion or position. Occurs at rest. Relieved with nitroglycerin. She denies any chest pain, nausea, diaphoresis. This jaw pain is similar to prior episodes of angina that she's had. She denies any heart failure symptoms including orthopnea, leg edema, or PND. Of note, she had an episode of symptomatic NSVT on 07/19. Her fire medic, Dr Thomas, had ordered a TTE and lexiscan stress but these had not been done yet. She was tested for sleep apnea and has begun using CPAP. She reports worsening dyspnea on exertion over the last few months. In the ED, her initial troponin was negative. ECG showed <1mm ST depressions in lateral leads and T wave flattening in aVF. Cardiology was consulted. History Information - Allergies/Home Medication List Allergies/Adverse Reactions: Sulfa (Sulfonamide Antibiotics) Allergy (Unknown, Verified 08/17/18 08:24) Unknown Home Medications: Atorvastatin Calcium [Lipitor 40 mg (*)] 40 mg PO HS 03/13/14 [Last Taken ] C/E/Zn/Cu/OM3/DHA/EPA/LUT/ZEAX [Preservision Areds 2 Softgel] 1 each PO BID #0 03/13/14 [Last Taken 08/17/18] Levothyroxine [Synthroid 100 mcg (*)] 100 mcg PO DAILY06 03/13/14 [Last Taken ] amLODIPine BESYLATE [Norvasc 10 mg (*)] 10 mg PO DAILY 09/17/15 [Last Taken ] Lansoprazole [Prevacid] 15 mg PO BIDMEAL PRN 11/13/16 [Last Taken 08/17/18] Nitroglycerin [Nitrostat 0.4 mg (*)] 0.4 mg SL Q5M PRN 11/13/16 [Last Taken Unknown] Apixaban [Eliquis] 5 mg PO BID 08/17/18 [Last Taken 08/17/18] Beclomethasone Qvar 80 [Qvar 80 Redihaler (*)] 1 inh IH BID 08/17/18 [Last Taken 08/17/18] Furosemide [Lasix 20 MG (*)] 20 mg PO DAILY 08/17/18 [Last Taken 08/17/18] Metoprolol Tartrate [Lopressor 100 mg (*)] 100 mg PO DAILY 08/17/18 [Last Taken 08/17/18] Metoprolol Tartrate [Lopressor 50 mg (*)] 50 mg PO HS 08/17/18 [Last Taken 08/16] Mirtazapine [Remeron] 15 mg PO HS 08/17/18 [Last Taken 08/16/18] Potassium Cl [Klor-Con] 10 meq PO DAILY 08/17/18 [Last Taken 08/17/18] Tobramycin/Dexameth [Tobradex opht drops (*)] 1 drops EACHEYE HS 08/17/18 [Last Taken 08/16/18] Tobramycin/Dexamethasone [Tobradex Eye Ointment] 1 colin OP HS 08/17/18 [Last Taken 08/16/18] I have personally reviewed and updated: family history, medical history, social history, surgical history - Past Medical History Additional medical history: CAD s/p PCI to RCA x6 and 1 vessel RCA bpyass 11/2016 , sick sinus syndrome s/p PPM, paroxysmal atrial fibrillation on OAC, HTN, HLD, hypothyroidism, breast cancer s/p cobalt radiation with chronic RUE lymphedema, DEON, macular degeneration, osteopenia - Surgical History Additional surgical history: right mastectomy, CABG, bilateral tubal ligation, appendectomy, wrist surgery - Family History Additional family history: mother - lung cancer, sister - diabetes, father - CAD at age 49, sister - breast cancer - Social History Smoking Status: Former smoker Alcohol Use: None Drug Use: None Additional social history: Independent in ADLs Review of Systems Review of Systems: ROS: 10pt was reviewed & negative except for what was stated in HPI & below Physical Exam Physical Exam: Temp Pulse Resp BP Pulse Ox 36.6 C 94 18 150/90 H 95 08/17/18 11:46 08/17/18 11:46 08/17/18 11:46 08/17/18 11:46 08/17/18 11:46 Constitutional: no apparent distress, appears nourished, not in pain Eyes: PERRL, anicteric sclera, EOMI Ears, Nose, Mouth, Throat: moist mucous membranes, hearing normal, ears appear normal, no oral mucosal ulcers Cardiovascular: regular rate and rhythym, no murmur, rub, or gallop, pulses symmetric bilaterally, edema (trace at B/L ankles), other (2+ bilateral femoral , PT, and DP pulses), No JVD Respiratory: no respiratory distress, no rales or rhonchi, clear to auscultation Gastrointestinal: normoactive bowel sounds, soft, non-tender abdomen, no palpable masses Genitourinary: no bladder fullness, no bladder tenderness Skin: warm, normal color, no rashes or abrasions, no fluctuance, no induration, No mottled Musculoskeletal: full muscle strength, no muscle tenderness, normal joint ROM, no joint effusions Neurologic: AAOx3 Psychiatric: interacting appropriately, not anxious, not encephalopathic, thought process linear Lab Data & Imaging Review 08/17/18 09:00 08/17/18 09:00 WBC 9.83 10^3/uL (3.80-9.50) H 08/17/18 09:00 RBC 4.53 10^6/uL (4.18-5.33) 08/17/18 09:00 Hgb 14.2 g/dL (12.6-16.3) 08/17/18 09:00 Hct 43.5 % (38.0-47.0) 08/17/18 09:00 MCV 96.0 fL (81.5-99.8) 08/17/18 09:00 MCH 31.3 pg (27.9-34.1) 08/17/18 09:00 MCHC 32.6 g/dL (32.4-36.7) 08/17/18 09:00 RDW 13.8 % (11.5-15.2) 08/17/18 09:00 Plt Count 229 10^3/uL (150-400) 08/17/18 09:00 MPV 9.5 fL (8.7-11.7) 08/17/18 09:00 Neut % (Auto) 77.3 % (39.3-74.2) H 08/17/18 09:00 Lymph % (Auto) 14.4 % (15.0-45.0) L 08/17/18 09:00 Mills % (Auto) 6.6 % (4.5-13.0) 08/17/18 09:00 Eos % (Auto) 0.6 % (0.6-7.6) 08/17/18 09:00 Baso % (Auto) 0.4 % (0.3-1.7) 08/17/18 09:00 Nucleat RBC Rel Count 0.0 % (0.0-0.2) 08/17/18 09:00 Absolute Neuts (auto) 7.59 10^3/uL (1.70-6.50) H 08/17/18 09:00 Absolute Lymphs (auto) 1.42 10^3/uL (1.00-3.00) 08/17/18 09:00 Absolute Monos (auto) 0.65 10^3/uL (0.30-0.80) 08/17/18 09:00 Absolute Eos (auto) 0.06 10^3/uL (0.03-0.40) 08/17/18 09:00 Absolute Basos (auto) 0.04 10^3/uL (0.02-0.10) 08/17/18 09:00 Absolute Nucleated RBC 0.00 10^3/uL (0-0.01) 08/17/18 09:00 Immature Gran % 0.7 % (0.0-1.1) 08/17/18 09:00 Immature Gran # 0.07 10^3/uL (0.00-0.10) 08/17/18 09:00 PT 14.7 SEC (12.0-15.0) 08/17/18 09:00 INR 1.13 (0.83-1.16) 08/17/18 09:00 APTT 31.2 SEC (23.0-38.0) 08/17/18 09:00 D-Dimer 0.57 ug/mLFEU (0.00-0.50) H 08/17/18 09:00 Sodium 139 mEq/L (135-145) 08/17/18 09:00 Potassium 3.5 mEq/L (3.5-5.2) 08/17/18 09:00 Chloride 103 mEq/L (97-110) 08/17/18 09:00 Carbon Dioxide 27 mEq/l (22-31) 08/17/18 09:00 Anion Gap 9 mEq/L (6-14) 08/17/18 09:00 BUN 14 mg/dL (7-23) 08/17/18 09:00 Creatinine 0.6 mg/dL (0.6-1.0) 08/17/18 09:00 Estimated GFR > 60 08/17/18 09:00 Glucose 101 mg/dL (70-100) H 08/17/18 09:00 Calcium 9.4 mg/dL (8.5-10.4) 08/17/18 09:00 Magnesium 2.0 mg/dL (1.6-2.3) 08/17/18 09:00 POC Troponin I 0.00 ng/mL (0.00-0.08) 08/17/18 09:06 NT-Pro-B Natriuret Pep 420 pg/mL (0-450) 08/17/18 09:00 Visualized and Interpreted Chest x-ray results: Yes Visualized and Interpreted imaging results: Yes Interpretation: CXR: negative for infiltrate or effusion, no pulmonary vascular congestion, PM/ICD in place, prior sternotomy wires (interp by ky) Visualized and Interpreted EKG results: Yes EKG additional interpertation: ECG: NSR, T wave inversions in V1 and III (old), T wave flattening in aVF, <1mm ST depression in anterolateral leads (new), no ST elevations Assessment & Plan Assessment: 88yo F with history of CAD s/p numerous RCA stents and 1 vessel bypass grafting of RCA in 2017 presents with bilateral groin and neck/jaw pain concerning for anginal equivalent. Plan: 1. Neck/jaw pain: Similar to prior episodes of angina. Initial trop/ecg negative for acute ischemia. Relieved by nitro. Last [facility] 10/2016 with severe stenosis in RCA now s/p bypass and only 10-20% stenosis elsewhere. This will require ischemic evaluation. Currently pain free. - Serial troponin/ECG - Dr Fung consulted - Defer stress test vs cath to cardiology 2. Bilateral groin pain: Strong, palpable pulses makes vascular disease less likely. Query msk etiology vs neurologic issue. - Plan to evaluate with ABIs and MRI of lumbar spine but will prioritize cardiac work up first - May benefit from neuropathic agent such as gabapentin 3. Recent NSVT: Had symptomatic episode 07/19. - TTE, telemetry 4. CAD: Preserved LVEF - Continue aspirin, statin, beta brooke 5. Paroxysmal atrial fibrillation - Continue metoprolol - Holding eliquis until clear if will need procedure (cath) 6. SSS s/p pacemaker 7. HTN: Home meds. 8. Macular degeneration: Home eye drops. 9. Hypothyroidism: Continue LT4 replacement. VTE ppx: therapeutic anticoagulation Code: DNR/DNI per discussion with patient today Diet: NPO until decision on cardiac procedure, then cardiac Dispo: Admit under observation
[2018-08-17] MEDS ORDERED: oxyCODONE IR 5 MG TAB PO PRN (14:51)
--- NOTE | 2018-08-17 15:30 | PDCARPN ---
Cardiology Progress Note Assessment/Plan: This is a robust 88-year-old woman with a history of single-vessel CAD of the RCA (attributed to cobalt radiotherapy for breast cancer in the distant past). Beginning in 2005, she underwent multiple cardiac cath/PCI procedures for high- grade stenoses/restenoses In the RCA. Her LAD and circumflex are essentially normal. Ultimately, an additional attempt at PCI in October of 2016 was unsuccessful and she was referred for a single-vessel CABG on November 18, 2016. Her bypass consists of a saphenous vein graft to the distal RCA. For the past 3 weeks, she has been on vacation in the [place]. She reports that in June she began to develop bilateral pain on the inner aspect of her thighs into the groin with the left side being worse. The pain has been fairly constant and is exacerbated with twisting or ascending stairs. It is somewhat better if she is standing. She began to consider whether it might be related to her cardiac history (note: She does NOT have a history of documented peripheral arterial disease). Interestingly, she took a couple of sublingual nitroglycerin tablets and thinks it provided some relief. She also reports increasing dyspnea with exertion. She contacted our office by phone and was advised to seek evaluation in an emergency room in [place]. She did not wish to receive care in the local hospital where her had sustained a major CVA several years ago. She returned home to [place] on an overnight flight and came directly from the airport to [facility] this morning. Her ECG is negative for ischemic changes. Her troponin in the ER was 0.0. Her d-dimer was normal for age. She was not hypoxic. I have not sure what to make of her bilateral thigh/groin pain and its response to nitroglycerin. It seems unlikely to represent peripheral arterial disease given the normal appearance and pulses in her lower extremities. She also reports some bilateral neck pain. In the past, her anginal symptoms were limited to jaw discomfort. Her current symptoms do not exactly reproduce her prior angina. - Will obtain an echocardiogram this afternoon. Her last echocardiogram was on November 17, 2016. That study demonstrated normal left ventricular size and systolic function with an ejection fraction of 70%. She had mild LVH with associated diastolic dysfunction. She had moderate aortic valve calcification with a mean gradient of 18 mmHg. She had trace MR and TR. - She has not had a functional evaluation for ischemia since her bypass in 2016. She will have serial troponins. Will tentatively plan for a pharmacologic nuclear stress test tomorrow. 08/17/18 15:20 Subjective: Bilateral leg and neck pain. Reviewed/Discussed With: family Time Spent with Patient: greater than 25 minutes Time Spent with Patient: Greater than 25 minutes spent on this patients care, greater than 50% of time spent counseling, educating, and coordinating care regarding the above mentioned plan. Objective: Vital Signs (8 Hrs) Temp Pulse Resp BP Pulse Ox 08/17/18 11:46 36.6 C 94 18 150/90 H 95 08/17/18 11:22 92 16 127/79 H 95 Intake/Output (24 Hrs) 08/16/18 08/17/18 08/18/18 05:59 05:59 05:59 Other: Weight 74.8 kg Result Diagrams: 08/17/18 09:00 08/17/18 09:00 - Physical Exam Constitutional: no apparent distress Eyes: anicteric sclera Ears, Nose, Mouth, Throat: moist mucous membranes Cardiovascular: regular rate and rhythm, systolic murmur Peripheral Pulses: 2+: dorsalis-pedis (R), dorsalis-pedis (L) Respiratory: clear to auscultate bilat Gastrointestinal: normoactive bowel sounds, no tenderness, no masses Skin: no rashes, no edema Neurologic: AAOx3 Psychiatric: not anxious ICD10 Worksheet Patient Problems: Problems Problem Status Onset Atrial fibrillation Acute Bilateral groin pain Acute Exertional dyspnea Acute Other and unspecified angina pectoris Acute Acute blood loss as cause of postoperative anemia Acute Acute coronary syndrome Acute Chest pain Acute Chronic Disease Mgmt/Transitonal Care Acute Coronary artery disease Acute Paroxysmal atrial fibrillation Acute S/P CABG x 1 Acute
--- NOTE | 2018-08-17 16:20 | ECHO ---
[email or web address] [address] Main: [phone] Fax: [email or web address] Echocardiogram Name: ANITRA MCCLAIN MR#: [id number] Study Date: 08/17/2018 Study Time: 03:16 PM Date of : 1930 Age: 88 year(s) Height: 160 cm (63 in.) Weight: 74.39 kg (164 lb.) BSA: 1.78 m2 Gender: Female Examination: Echo Indication: CAD/neck pain/ hx pacer/CABG Image Quality: Fair Contrast: Requested by: Nic Fung BP: 150 mmHg/90 mmHg Heart Rate: Rhythm: Indication: CAD/neck pain/ hx pacer/CABG Procedure Staff [employer] Tutor: Jil Thomas RDCS Reading Physician: Nic Fung MD Requesting Provider: Conclusions: Normal size left ventricle. Mild concentric LV hypertrophy. The ejection fraction is estimated to be 70-75 %. No regional wall motion abnormality. Diastolic dysfunction is present. . There is a pacemaker lead noted in the right ventricle. Mild mitral annular calcification. Mild mitral valve regurgitation is present. Moderate aortic cusp calcification is present. Moderate calcific aortic valve stenosis. AV max PG is 40mmHG. AV mean PG is 23mmHG.. Mild tricuspid regurgitation is present. RVSP is 36mmHG.. No pericardial effusion. Compared to 11/17/2016, the aortic valve mean gradient has increased slightly (previously 18 mmHg). Measurements: Chambers Valvular Assessment AV/MV Valvular Assessment TV/PV Normal Normal Normal Name Value Range Name Value Range Name Value Range IVSd (2D): 1.2 cm (0.6 cm-1.1 AV meanP mmHg ( - ) TR Vmax: 2.77 mm/s ( - ) cm) KRISTI (VTI): 1.3 cm ( - ) TR PGmax: 31 mmHg ( - ) LVDd (2D): 3.4 cm (3.9 cm-5.3 MV E Vmax: 0.73 m/s ( - ) syst. PAP: 36 mmHg ( - ) cm) MV A Vmax: 1.02 m/s ( - ) LVDs (2D): 2.1 cm (2.1 cm-4 MV E/A: 0.72 ( - ) cm) LVPWd (2D): 1.0 cm ( - ) LVOTd 2.1 cm 2.1 cm mm LVEF (MOD4): 46 % (>=55 %) EF Range: 70-75 % Patient: ANITRA MCCLAIN Study Date: 08/17/2018 Page 1 of 2 03:16 PM Continued Measurements: Chambers Valvular Assessment AV/MV Valvular Assessment TV/PV Name Value Name Value Name Value LADs: 3.9 cm MV E' Septal: 0.04 m/s CVP (est.): 5 mmHg LADs Lon.6 cm MV E/E' Septal: 20.10 LA Area: 20.1 cm2 MV E/E' Lateral: 9.10 Additional Vessels Name Value Ao Ascendin.6 cm Findings: Left Ventricle: Normal size left ventricle. Mild concentric LV hypertrophy. Global hypercontractility of the left ventricle. The ejection fraction is estimated to be 70-75 %. No regional wall motion abnormality. Diastolic dysfunction is present. . Right Ventricle: Normal size right ventricle. There is a pacemaker lead noted in the right ventricle. There is a moderator band noted in the right ventricle. Left Atrium: The left atrium is normal in size. Right Atrium: The right atrium is normal in size. Mitral Valve: Mild mitral annular calcification. Mild mitral valve regurgitation is present. Aortic Valve: Moderate aortic cusp calcification is present. Moderate calcific aortic valve stenosis. AV max PG is 40mmHG. AV mean PG is 23mmHG.. Tricuspid Valve: The tricuspid valve is normal in appearance and function. Mild tricuspid regurgitation is present. RVSP is 36mmHG.. Pulmonic Valve: The pulmonic valve is normal in appearance and function. Mild pulmonic valve regurgitation is noted. Aorta: The aorta is normal. Pericardium: No pericardial effusion. There is pericardial fat. (No Signature Object) Patient: ANITRA MCCLAIN Study Date: 08/17/2018 Page 2 of 2 03:16 PM [id number]
[2018-08-17] MEDS: PANTOPRAZOLE SODIUM 40 MG TAB PO SCH (18:16)
[2018-08-17] MEDS: BECLOMETHASONE QVAR 80 REDIHALER 120 INH/10.6 GM MDI IH SCH (20:23)
[2018-08-17] MEDS ORDERED: METOPROLOL TARTRATE 50 MG TAB PO SCH (21:00)
[2018-08-17] MEDS ORDERED: ATORVASTATIN CALCIUM 40 MG TAB PO SCH (21:00)
[2018-08-17] MEDS ORDERED: MIRTAZAPINE 15 MG TAB PO SCH (21:00)
[2018-08-17] MEDS ORDERED: TOBRAMYCIN/DEXAMETH 3.5 GM OPHT.OINT OP SCH (21:00)
[2018-08-17] MEDS ORDERED: TOBRAMYCIN/DEXAMETH 5 ML OPHT.BTL EACHEYE SCH (21:00)
[2018-08-17] MEDS: APIXABAN 5 MG TAB PO SCH (22:04)
[2018-08-18] MEDS: NITROGLYCERIN 0.4 MG BTL SL PRN ×2 (04:20→04:27)
[2018-08-18] MEDS ORDERED: LEVOTHYROXINE 100 MCG TAB PO SCH (06:00)
[2018-08-18] MEDS: DICLOFENAC SODIUM 1% 100 GM GEL TP PRN ×2 (06:16→12:26)
[2018-08-18] MEDS: BECLOMETHASONE QVAR 80 REDIHALER 120 INH/10.6 GM MDI IH SCH (08:12)
[2018-08-18] MEDS ORDERED: FUROSEMIDE 20 MG TAB PO SCH (09:00)
[2018-08-18] MEDS ORDERED: METOPROLOL TARTRATE 100 MG TAB PO SCH (09:00)
[2018-08-18] MEDS ORDERED: REGADENOSON 0.4 MG/5 ML SYR IVP ONE (09:17)
--- NOTE | 2018-08-18 10:31 | CPR ---
[f rep st] NONINVASIVE CARDIAC PROCEDURE REPORT DATE OF PROCEDURE: 08/18/2018 PROCEDURE: Lexiscan nuclear stress test. INDICATION: The patient is an 88-year-old female with a history of coronary artery disease, status p ost CABG, who presented to the hospital with intermittent jaw pain, which was reminiscent of her prio r angina pain. She has also noted groin pain, which feels similar to her neck discomfort. PROCEDURE IN DETAIL: Consent was obtained, and the patient was placed on continuous telemetry. Her resting EKG reveals sinus tachycardia with a heart rate of 101. She has nonspecific ST-T wave change s in the inferior leads. The patient was infused with Lexiscan and complained of shortness of breath and chest pressure. She remained in normal sinus rhythm without any significant ST-T wave changes. Her blood pressure at rest was 136/80 and dropped with infusion to 110/66. Her blood pressure incre ased and was close to baseline 3 minutes into the recovery phase. PLAN: Await nuclear images. /[id number]/MODL
[2018-08-18 12:17] VITALS: BP 116/78
[2018-08-18] MEDS: APIXABAN 5 MG TAB PO SCH (12:25)
[2018-08-18] MEDS: PANTOPRAZOLE SODIUM 40 MG TAB PO SCH (12:26)
[2018-08-18] MEDS ORDERED: LIDOCAINE 2% JELLY 6 ML TOPICAL SYR TP ONE (12:49)
--- NOTE | 2018-08-18 14:31 | PDDCSUM ---
Discharge Summary Discharge Summary: Date of Admission: 08/17/2018 Date of Discharge: 08/18/2018 Consultants: cardiology Studies: 1. TTE 2. Bilateral soft tissue ultrasound of inguinal region 3. Lexiscan stress test with NM Discharge Diagnoses: 1. Neck pain, not anginal equivalent 2. Bilateral groin pain of unclear etiology 3. Recent NSVT 4. CAD s/p 1v CABG 5. Paroxysmal atrial fibrillation on eliquis 6. SSS s/p pacemaker 7. HTN 8. Macular degeneration 9. Hypothyroidism Brief Hospital Course: 88yo F with history of CAD of the RCA (attributed to cobalt XRT for breast cancer in the distant past) s/p numerous RCA stents and 1 vessel bypass grafting of RCA in 2017 presented with several weeks of worsening bilateral groin and neck pain that were relieved with nitroglycerin. Her prior of episodes of angina consisted of jaw pain, and she was concerned that her neck pain was an anginal equivalent so she flew back from [place], where she was vacationing, to get evaluated. Cardiology was consulted. Serial troponin/ECG negative for ischemia. TTE was essentially unchanged from prior (normal LVEF, no hemodynamically significant valvular disease, diastolic dysfunction). Underwent stress test with NM that was negative for ischemia/infarct. She was felt safe for discharge from a cardiac stand point. Of note, she had a symptomatic episode of NSVT that was captured on her PPM on 07/19. Telemetry here did not show any additional arrhythmias. The etiology of her bilateral groin pain remained elusive. She has strong femoral and distal PT and DP pulses bilaterally, making peripheral vascular disease unlikely. Ultrasound did not show a hernia and doppler flows were negative for aneurysm/pseudoaneurysm. We entertained idea of obtaining lumbar MRI to evaluate for nerve impingement but ultimately decided on deferring and just treating symptomatically and she did have some response to topical diclofenac. Medications: Please refer to EMR for complete list. Follow Up Plan: 1. To follow up with Dr Thomas in cardiology clinic as planned 2. Continue to follow with PCP re: inguinal pain management Physical Exam: Vitals and telemetry reviewed, stable. Alert and oriented, no focal neurologic deficits, 2+ bilateral femoral pulses, no rashes or erythema, RRR without m/r/g, lungs clear, abdomen soft, no leg edema or JVD.
--- NOTE | 2018-08-18 14:45 | PDCARPN ---
Cardiology Progress Note Assessment/Plan: This is a robust 88-year-old woman with a history of single-vessel CAD of the RCA (attributed to cobalt radiotherapy for breast cancer in the distant past). Beginning in 2005, she underwent multiple cardiac cath/PCI procedures for high- grade stenoses/restenoses In the RCA. Her LAD and circumflex are essentially normal. Ultimately, an additional attempt at PCI in October of 2016 was unsuccessful and she was referred for a single-vessel CABG on November 18, 2016. Her bypass consists of a saphenous vein graft to the distal RCA. For the past 3 weeks, she has been on vacation in the [place]. She reports that in June she began to develop bilateral pain on the inner aspect of her thighs into the groin with the left side being worse. The pain has been fairly constant and is exacerbated with twisting or ascending stairs. It is somewhat better if she is standing. She began to consider whether it might be related to her cardiac history (note: She does NOT have a history of documented peripheral arterial disease). Interestingly, she took a couple of sublingual nitroglycerin tablets and thinks it provided some relief. She also reports increasing dyspnea with exertion. She contacted our office by phone and was advised to seek evaluation in an emergency room in [place]. She did not wish to receive care in the local hospital where her had sustained a major CVA several years ago. She returned home to [place] on an overnight flight and came directly from the airport to [facility] this morning. Her ECG is negative for ischemic changes. Her troponin in the ER was 0.0. Her d-dimer was normal for age. She was not hypoxic. I have not sure what to make of her bilateral thigh/groin pain and its response to nitroglycerin. It seems unlikely to represent peripheral arterial disease given the normal appearance and pulses in her lower extremities. She also reports some bilateral neck pain. In the past, her anginal symptoms were limited to jaw discomfort. Her current symptoms do not exactly reproduce her prior angina. 08/17/18 15:20 08/18/18 14:44 Objective: Vital Signs (8 Hrs) Temp Pulse Resp BP Pulse Ox 08/18/18 12:00 36.6 C 107 H 15 116/78 93 08/18/18 07:59 36.4 C 104 H 14 134/87 H 95 Intake/Output (24 Hrs) 08/17/18 08/18/18 08/19/18 05:59 05:59 05:59 Intake Total 920 Balance 920 Intake: Oral (ml) 920 Other: Weight 74.8 kg Number of Voids Toilet 2 Result Diagrams: 08/18/18 04:08 08/18/18 04:08 Cardiac Labs: Cardiac Lab Results (72 Hrs) 08/17/18 08/17/18 22:55 18:00 Troponin I < 0.012 < 0.012 ICD10 Worksheet Patient Problems: Problems Problem Status Onset Other and unspecified angina pectoris Acute Exertional dyspnea Acute Bilateral groin pain Acute Atrial fibrillation Acute Paroxysmal atrial fibrillation Acute Acute blood loss as cause of postoperative anemia Acute S/P CABG x 1 Acute Chest pain Acute Chronic Disease Mgmt/Transitonal Care Acute Coronary artery disease Acute Acute coronary syndrome Acute
--- NOTE | 2018-08-18 14:49 | PDCARPN ---
Cardiology Progress Note Assessment/Plan: This is a robust 88-year-old woman with a history of single-vessel CAD of the RCA (attributed to cobalt radiotherapy for breast cancer in the distant past). Beginning in 2005, she underwent multiple cardiac cath/PCI procedures for high- grade stenoses/restenoses In the RCA. Her LAD and circumflex are essentially normal. Ultimately, an additional attempt at PCI in October of 2016 was unsuccessful and she was referred for a single-vessel CABG on November 18, 2016. Her bypass consists of a saphenous vein graft to the distal RCA. For the past 3 weeks, she has been on vacation in the [place]. She reports that in June she began to develop bilateral pain on the inner aspect of her thighs into the groin with the left side being worse. The pain has been fairly constant and is exacerbated with twisting or ascending stairs. It is somewhat better if she is standing. She began to consider whether it might be related to her cardiac history (note: She does NOT have a history of documented peripheral arterial disease). Interestingly, she took a couple of sublingual nitroglycerin tablets and thinks it provided some relief. She also reports increasing dyspnea with exertion. She contacted our office by phone and was advised to seek evaluation in an emergency room in [place]. She did not wish to receive care in the local hospital where her had sustained a major CVA several years ago. She returned home to [place] on an overnight flight and [facility]. Her ECG is negative for ischemic changes. Her troponin in the ER was 0.0. Her d-dimer was normal for age. She was not hypoxic. Serial troponins have been negative. Her echocardiogram from yesterday demonstrates normal left ventricular systolic function and age related valvular changes without hemodynamically significant valvular dysfunction. She does have mild LVH with associated diastolic dysfunction which may be contributing to dyspnea with physical activity. Her pharmacologic nuclear stress test is negative for evidence of ischemia or infarction. Topical diclofenac has been helpful for her bilateral leg pain. - She is stable for discharge from my standpoint. - I will contact the office staff at [facility]. The upcoming appointments for an echo and pharmacologic nuclear stress test that were previously scheduled will be canceled. - The office staff will contact the patient to arrange a followup appointment with her usual table lever operator, Dr. Thomas. 08/18/18 14:45 Subjective: Leg pain improved with topical diclofenac. Reviewed/Discussed With: family Objective: Vital Signs (8 Hrs) Temp Pulse Resp BP Pulse Ox 08/18/18 12:00 36.6 C 107 H 15 116/78 93 08/18/18 07:59 36.4 C 104 H 14 134/87 H 95 Intake/Output (24 Hrs) 08/17/18 08/18/18 08/19/18 05:59 05:59 05:59 Intake Total 920 Balance 920 Intake: Oral (ml) 920 Other: Weight 74.8 kg Number of Voids Toilet 2 Result Diagrams: 08/18/18 04:08 08/18/18 04:08 Cardiac Labs: Cardiac Lab Results (72 Hrs) 08/17/18 08/17/18 22:55 18:00 Troponin I < 0.012 < 0.012 - Physical Exam Constitutional: no apparent distress Eyes: anicteric sclera Ears, Nose, Mouth, Throat: moist mucous membranes Cardiovascular: regular rate and rhythm, systolic murmur Respiratory: clear to auscultate bilat Gastrointestinal: normoactive bowel sounds, no tenderness, no masses Skin: no rashes, no edema Neurologic: AAOx3 Psychiatric: not anxious ICD10 Worksheet Patient Problems: Problems Problem Status Onset Atrial fibrillation Acute Bilateral groin pain Acute Exertional dyspnea Acute Other and unspecified angina pectoris Acute Acute blood loss as cause of postoperative anemia Acute Acute coronary syndrome Acute Chest pain Acute Chronic Disease Mgmt/Transitonal Care Acute Coronary artery disease Acute Paroxysmal atrial fibrillation Acute S/P CABG x 1 Acute
== END 2018-08-18 15:31 | disposition home or self-care (01) ==
LOC: F2W 12:09
PROVIDERS: ADMIT Internal Medicine; ATTEND Internal Medicine
DX: M54.2 Cervicalgia (principal); R10.30 Lower abdominal pain, unspecified; R06.09 Other forms of dyspnea; I25.10 Atherosclerotic heart disease of native coronary artery without angina pectoris; I48.0 Paroxysmal atrial fibrillation; I49.5 Sick sinus syndrome; I88.1 Chronic lymphadenitis, except mesenteric; I10 Essential (primary) hypertension; E03.9 Hypothyroidism, unspecified; M85.89 Other specified disorders of bone density and structure, multiple sites; H35.30 Unspecified macular degeneration; Z79.01 Long term (current) use of anticoagulants; Z92.3 Personal history of irradiation; Z85.3 Personal history of malignant neoplasm of breast; Z87.891 Personal history of nicotine dependence; Z82.49 Family history of ischemic heart disease and other diseases of the circulatory system; Z95.5 Presence of coronary angioplasty implant and graft; Z95.1 Presence of aortocoronary bypass graft; Z95.0 Presence of cardiac pacemaker; Z88.2 Allergy status to sulfonamides; Z90.11 Acquired absence of right breast and nipple; Z66 Do not resuscitate
CPT/HCPCS: 71046; 76882; 78452; 93005; 93017; 93306; 93922; 99285; A9500; G0378; J2785; 84484-ER; Q9967

== ENCOUNTER 2018-10-02 12:24 | Emergency (ER) | payer OTHER, BC ==
--- NOTE | 2018-10-02 12:48 | EDPHY ---
H & P Stated Complaint: r leg swelling Time Seen by Provider: 10/02/18 12:40 HPI/ROS: CHIEF COMPLAINT: Right leg swelling HISTORY OF PRESENT ILLNESS: The patient is an 88-year-old female who is sent to the emergency department by her primary care office for swelling in her right leg and concern for DVT. She does take Eliquis and has been taking it faithfully. She also has a history of chronic right arm leg edema ever since her mastectomy and lymph node biopsy 20 years ago. She states that she had a chronic wound to right esposito as well from several months ago that is been gradually healing. She has slight amount of erythema and warmth to the esposito which she states is baseline. She takes Lasix 20 mg a day. This dose has not been changed recently. She has not had any increase in leg pain. No chest pain or shortness of breath. No known history of liver or kidney disease. She has been afebrile. Severity: Moderate Modifying factors: None REVIEW OF SYSTEMS: Constitutional: denies: chills, fever, recent illness, recent injury EENTM: denies: blurred vision, double vision, nose congestion Respiratory: denies: cough, shortness of breath Cardiac: denies: chest pain, irregular heart rate, lightheadedness, palpitations Gastrointestinal/Abdominal: denies: abdominal pain, diarrhea, nausea, vomiting, blood streaked stools Genitourinary: denies: dysuria, frequency, hematuria, pain Musculoskeletal: denies: joint pain, muscle pain Skin: See HPI Neurological: denies: headache, numbness, paresthesia, tingling, dizziness, weakness Hematologic/Lymphatic: denies: blood clots, easy bleeding, easy bruising Immunologic/allergic: denies: HIV/AIDS, transplant 10 systems reviewed and negative except as noted EXAM: GENERAL: Well-appearing, well-nourished and in no acute distress. HEAD: Atraumatic, normocephalic. EYES: Pupils equal round and reactive to light, extraocular movements intact, sclera anicteric, conjunctiva are normal. ENT: TMs normal, nares patent, oropharynx clear without exudates. Moist mucous membranes. NECK: Normal range of motion, supple without lymphadenopathy or JVD. LUNGS: Breath sounds clear to auscultation bilaterally and equal. No wheezes rales or rhonchi. HEART: Regular rate and rhythm without murmurs, rubs or gallops. ABDOMEN: Soft, nontender, normoactive bowel sounds. No guarding, no rebound. No masses appreciated. BACK: No CVA tenderness, no spinal tenderness, step-offs or deformities EXTREMITIES: Right leg with 1+ edema, slight erythema and old bruising to anterior esposito. Patient states this is baseline. No warmth. No purulence. NEUROLOGICAL: Cranial nerves II through XII grossly intact. Normal speech, normal gait. 5/5 strength, normal movement in all extremities, normal sensation , normal reflexes PSYCH: Normal mood, normal affect. SKIN: Warm, dry, normal turgor, no visible rashes or lesions. Source: Patient Exam Limitations: No limitations - Personal History Current Tetanus/Diphtheria Vaccine: Yes - Medical/Surgical History Hx Asthma: Yes Hx Chronic Respiratory Disease: No Hx Diabetes: No Hx Cardiac Disease: Yes Hx Renal Disease: No Hx Cirrhosis: No Hx Alcoholism: No Hx HIV/AIDS: No Hx Splenectomy or Spleen Trauma: No Other PMH: PMH- cad, htn, hld, hypothyroid, breast CA, osteopenia, cataracts, macular degeneration, L. wrist fracture. PSH- 6 stents, right radical mastectomy, CABG - Family History Significant Family History: No pertinent family hx - Social History Smoking Status: Former smoker Alcohol Use: None Constitutional: Initial Vital Signs Temperature (C) 36.6 C 10/02/18 12:28 Heart Rate 85 10/02/18 12:28 Respiratory Rate 16 10/02/18 12:28 Blood Pressure 137/77 H 10/02/18 12:28 O2 Sat (%) 97 10/02/18 12:28 O2 Delivery Mode Room Air Allergies/Adverse Reactions: Sulfa (Sulfonamide Antibiotics) Allergy (Unknown, Verified 08/17/18 08:24) Unknown Home Medications: Medication Instructions Recorded Atorvastatin Calcium [Lipitor 40 40 mg PO HS 03/13/14 mg (*)] C/E/Zn/Cu/OM3/DHA/EPA/LUT/ZEAX 1 each PO BID #0 03/13/14 [Preservision Areds 2 Softgel] Levothyroxine [Synthroid 100 mcg 100 mcg PO DAILY06 03/13/14 (*)] amLODIPine BESYLATE [Norvasc 10 mg 10 mg PO DAILY 09/17/15 (*)] Lansoprazole [Prevacid] 15 mg PO BIDMEAL PRN 11/13/16 Apixaban [Eliquis] 5 mg PO BID 08/17/18 Beclomethasone Qvar 80 [Qvar 80 1 inh IH BID 08/17/18 Redihaler (*)] Furosemide [Lasix 20 MG (*)] 20 mg PO DAILY 08/17/18 Metoprolol Tartrate [Lopressor 100 100 mg PO DAILY 08/17/18 mg (*)] Metoprolol Tartrate [Lopressor 50 50 mg PO HS 08/17/18 mg (*)] Mirtazapine [Remeron] 15 mg PO HS 08/17/18 Potassium Cl [Klor-Con 10 meq (RX)] 10 meq PO DAILY 08/17/18 Tobramycin/Dexameth [Tobradex opht 1 drops EACHEYE HS 08/17/18 drops (*)] Tobramycin/Dexamethasone [Tobradex 1 colin OP HS 08/17/18 Eye Ointment] Lidocaine [Lidovex] 60 gm TP BID PRN #1 tube 08/18/18 Nitroglycerin [Nitrostat 0.4 mg 0.4 mg SL Q5M PRN #20 btl 08/18/18 (*)] Medical Decision Making - Diagnostics Imaging Results: Imaging Impressions Extremity Venous Study 10/02/18 12:32 Impression: Negative. No deep venous thrombosis. Findings discussed with Emergency Department physician, Tino Flores M.D., on October 02, 2018 at 1348. Imaging: Discussed imaging studies w/ call center nurse Radiologist ED Course/Re-evaluation: The patient feels well. Discussed ultrasound lab results which are reassuring. The patient is eager to go home. Encouraged her to increase her Lasix to twice daily for the next 3 days and then follow up with her primary care doctor. She agrees with this plan. We also discussed returning to the ER she dose of fever or worsening of her erythema. Differential Diagnosis: Partial list of the Differential diagnosis considered include but were not limited to; edema, DVT, cellulitis, erythema nodosum, chronic wound and although unlikely based on the history and physical exam, I also considered ischemia, sepsis. I discussed these differential diagnoses and the plan with the patient as well as the usual and expected course. The patient understands that the diagnosis is provisional and that in medicine we are not always correct and that further workup is often warranted. Usual and customary warnings were given. All of the patient's questions were answered. The patient was instructed to return to the emergency department should the symptoms at all worsen or return, otherwise to followup with the physician as we discussed. - Data Points Laboratory Results: Laboratory Results 10/02/18 13:13 10/02/18 13:13 10/02/18 10/02/18 10/02/18 13:13 13:13 13:13 WBC 9.43 10^3/uL 10^3/uL (3.80-9.50) RBC 4.49 10^6/uL 10^6/uL (4.18-5.33) Hgb 13.0 g/dL g/dL (12.6-16.3) Hct 41.0 % % (38.0-47.0) MCV 91.3 fL fL (81.5-99.8) MCH 29.0 pg pg (27.9-34.1) MCHC 31.7 g/dL L g/dL (32.4-36.7) RDW 14.2 % % (11.5-15.2) Plt Count 277 10^3/uL 10^3/uL (150-400) MPV 9.3 fL fL (8.7-11.7) Neut % (Auto) 76.9 % H % (39.3-74.2) Lymph % (Auto) 15.4 % % (15.0-45.0) Ritchie % (Auto) 6.4 % % (4.5-13.0) Eos % (Auto) 0.8 % % (0.6-7.6) Baso % (Auto) 0.3 % % (0.3-1.7) Nucleat RBC Rel Count 0.0 % % (0.0-0.2) Absolute Neuts (auto) 7.25 10^3/uL H 10^3/uL (1.70-6.50) Absolute Lymphs (auto) 1.45 10^3/uL 10^3/uL (1.00-3.00) Absolute Monos (auto) 0.60 10^3/uL 10^3/uL (0.30-0.80) Absolute Eos (auto) 0.08 10^3/uL 10^3/uL (0.03-0.40) Absolute Basos (auto) 0.03 10^3/uL 10^3/uL (0.02-0.10) Absolute Nucleated RBC 0.00 10^3/uL 10^3/uL (0-0.01) Immature Gran % 0.2 % % (0.0-1.1) Immature Gran # 0.02 10^3/uL 10^3/uL (0.00-0.10) PT 17.4 SEC H SEC (12.0-15.0) INR 1.50 H (0.83-1.16) APTT 35.9 SEC SEC (23.0-38.0) Sodium 139 mEq/L mEq/L (135-145) Potassium 4.2 mEq/L mEq/L (3.5-5.2) Chloride 104 mEq/L mEq/L (97-110) Carbon Dioxide 25 mEq/l mEq/l (22-31) Anion Gap 10 mEq/L mEq/L (6-14) BUN 16 mg/dL mg/dL (7-23) Creatinine 0.6 mg/dL mg/dL (0.6-1.0) Estimated GFR > 60 Glucose 95 mg/dL mg/dL (70-100) Calcium 9.4 mg/dL mg/dL (8.5-10.4) Total Bilirubin 0.6 mg/dL mg/dL (0.1-1.4) Conjugated Bilirubin 0.4 mg/dL mg/dL (0.0-0.5) Unconjugated Bilirubin 0.2 mg/dL mg/dL (0.0-1.1) AST 23 IU/L IU/L (14-46) ALT 29 IU/L IU/L (9-52) Alkaline Phosphatase 123 IU/L IU/L (38-126) Total Protein 7.1 g/dL g/dL (6.3-8.2) Albumin 3.8 g/dL g/dL (3.5-5.0) Departure - Departure Disposition: Home, Routine, Self-Care Clinical Impression: Lower extremity edema Condition: Fair Instructions: Leg Edema (ED) Additional Instructions: Increase your Lasix dose to twice daily for the next 3 days then follow up with her doctor for re-evaluation. Return to the emergency department if he develops fever or increased pain. Referrals: Itz Magana MD [Primary Care Provider] - As per Instructions Ana Cristina Childs MD [Medical Doctor] - 2-3 days, if not improved
[2018-10-02 13:29] LABS: PLATELET COUNT 277 10^3/uL (150-400)
[2018-10-02 13:40] LABS: INR 1.5 (0.83-1.16); PROTIME(PATIENT) 17.4 SEC (12.0-15.0)
[2018-10-02 14:13] VITALS: BP 124/84
== END 2018-10-02 14:34 | disposition home or self-care (01) ==
DX: R60.0 Localized edema (principal)